=== PATIENT | female | born 1950 | race Caucasian/White ===

== ENCOUNTER 2018-06-23 13:20 | Inpatient (IN) | payer MEDICARE ==
[~2018-06-23] VITALS: Ht 167.6 cm; Wt 54.1 kg
--- NOTE | 2018-06-23 13:45 | NUR ---
PT PLACED IN PAPER SCRUBS, AND PT PLACED IN SECURE ROOM 19. BELONGINGS REMOVED FROM PATIENT ROOM.
--- NOTE | 2018-06-23 14:28 | NUR ---
PT BECAME ARGUMENTATIVE WITH DOPE MIXER. PT REPORTS THAT SHE WILL NOT ALLOW LAB DRAWN UNTIL HER CAREGIVER ARRIVES AND STATES SHE WILL HIT DOPE MIXER IF CAREGIVER IS NOT PRESENT DURING LAB DRAW. ADVISED PT THAT HER CAREGIVER IS NOT PRESENT AT THIS TIME AND LAB WORK IS NEEDED TO HELP PATIENT GET FURTHER CARE. ALSO ADVISED PT THAT IT IS NOT OK TO MAKE VIOLENT THREATS. PT STATES SHE CAN " BECAUSE SHE IS FULL BLOODED SRI LANKAN" PT REPORTS SHE WILL ALLOW LAB DRAWN WITH NURSE PRESENT. ALLOWED DOPE MIXER TO DRAW BLOOD WITHOUT INCIDIENT.
[2018-06-23 14:37] LABS: BASOPHILS 0.3 % (0-2); EOSINOPHILS 0.8 % (0-7); HEMOGLOBIN 13.1 g/dL (12-16); LYMPHOCYTES 35.5 % (15-50); MCH 29.8 pg (26.0-34.0); MCHC 34.5 g/dL (31.0-37.0); MCV 86.6 fL (80.0-100.0); MEAN PLATELET VOLUME 10.4 fL (7.4-10.4); MONOCYTES 8.6 % (2-11); NEUTROPHILS 54.8 % (40-80); PLATELET COUNT 287 10x3/uL (130-400); RBC 4.39 10x6/uL (4.00-5.40); RDW 12.5 % (11.5-14.5); WBC 7.5 10x3/uL (4.8-10.8)
[2018-06-23 14:39] LABS: APPEARANCE HAZY (CLEAR); BILIRUBIN NEGATIVE (NEGATIVE); COLOR YELLOW (YELLOW); GLUCOSE 1000 mg/dL (NEGATIVE); KETONE NEGATIVE (NEGATIVE); NITRITE NEGATIVE (NEGATIVE); PROTEIN NEGATIVE (NEGATIVE); RED CELLS - URINE 0-5 /hpf (0-5); SPECIFIC GRAVITY 1.015 (1.005-1.020); UROBILINOGEN NORMAL (NORMAL)
[2018-06-23 14:40] LABS: BACTERIA MANY /hpf (NONE SEEN); MUCUS <1+ /lpf (NONE SEEN); YEAST <1+ /hpf (NONE SEEN)
[2018-06-23 15:00] LABS: ALBUMIN 3.6 g/dL (3.4-5.0); ALKALINE PHOSPHATASE 78 U/L (46-116); ALT (SGPT) 29 U/L (10-68); BILIRUBIN - TOTAL 0.52 mg/dL (0.2-1.3); CALC OSMOLALITY 295 mosm/kg (275-300); CALCIUM 8.4 mg/dL (8.5-10.1); CARBON DIOXIDE 27.8 mmol/L (21.0-32.0); CHLORIDE - SERUM 101 mmol/L (98-107); CREATININE - SERUM 0.8 mg/dL (0.6-1.3); GLUCOSE 299 mg/dL (74-106); POTASSIUM - SERUM 4.2 mmol/L (3.5-5.1); PROTEIN - SERUM 7.1 g/dL (6.4-8.2); SODIUM 140 mmol/L (136-145); UREA NITROGEN 28 mg/dL (7-18); eGFR NON AFRICAN AMERICAN 76 mL/min (90-120)
[2018-06-23 15:01] LABS: MAGNESIUM - SERUM 1.9 mg/dL (1.8-2.4)
[2018-06-23 15:05] LABS: UDS - AMPHET NEGATIVE QUAL (NEGATIVE); UDS - BARB NEGATIVE QUAL (NEGATIVE); UDS - BENZO NEGATIVE QUAL (NEGATIVE); UDS - COCAINE NEGATIVE QUAL (NEGATIVE); UDS - OPIATE NEGATIVE QUAL (NEGATIVE); UDS - PCP NEGATIVE QUAL (NEGATIVE); UDS - THC NEGATIVE QUAL (NEGATIVE)
[2018-06-23] MEDS ORDERED: GLUCOPHAGE500 MG PO (15:50)
[2018-06-23] MEDS ORDERED: LIPITOR20 MG PO (15:51)
[2018-06-23] MEDS ORDERED: PROTONIX40 MG (15:51)
[2018-06-23] MEDS ORDERED: LEXAPRO5 MG PO (15:51)
[2018-06-23] MEDS ORDERED: NORVASC10 MG PO (15:51)
[2018-06-23] MEDS ORDERED: DICLOFENAC SODI50 MG PO (15:51)
[2018-06-23] MEDS ORDERED: ASPIRIN81 MG PO (15:52)
[2018-06-23] MEDS ORDERED: COZAAR50 MG (15:52)
--- NOTE | 2018-06-23 17:40 | NUR ---
PT PROVIDED WITH SANDWICH TRAY AND DRINK.
--- NOTE | 2018-06-23 18:00 | NUR ---
ADMITTED TO [facility] RETIREMENT UNIT FROM EMERGENCY DEPT. SHE CAME FROM HOME TO ER. DX. SI, NOT EATING " I'VE JUST GIVEN UP " NO PLAN. CODE STATUS: DNR CODE WORD= ANNETTE PRADO. HISTORY OF LEFT FOOT FRACTURE. SHE HAS A UTI AND GIVEN ROCEPHIN 1 GM IM INJECTION IN EMERGENCY DEPT. HT: 5'6' WT:119.12 TEMP=98.3 B/P=142/93, PULSE=88 RESP=18 O2 SAT=95% WILL CONTINUE TO MONITOR. PATIENT IS ABLE TO WALK WITH A WALKER.
[2018-06-23 18:59] LABS: CHOL - HDL RATIO 1.7 ratio (2.3-4.1); LDL-HDL RATIO 0.6 ratio (1.5-3.5); THYROID STIMULATING HORMONE 1.53 uIU/mL (0.36-3.74)
--- NOTE | 2018-06-24 01:30 | NUR ---
RECEIVED IN PATIENT ROOM. RESTING IN BED WITH EYES CLOSED. CALM AND COOPEATIVE WITH CARE AND ASSESSMENT. PLEASANT. ENCOURAGE TO EXPRESS NEEDS. REDIRECT AND REORIENT NEEDED. RESTING IN BED WITH EYES CLOSED AT THIS TIME. CONTINUE PLAN OF CARE.
[2018-06-24 05:46] VITALS: BP 142/93; BMI 19.2
--- NOTE | 2018-06-24 07:30 | NUR ---
REC'D PT IN HALLWAY WITH PEERS. ALERT AND ORIENTED X 3. PT DENIES ANY SI. PT DENIES ANY HARM TO SELF. PT. IS DELUSIONAL AT TIMES. CALM AND COOPERATIVE WITH ASSESSMENT. REDIRECT NEEDED. PRESCRIBED MEDS PROVIDED. MED COMPLIANT. FALL PRECAUTIONS IN PLACE. WILL CONTINUE TO MONITOR Q 15 MINUTES FOR SAFETY. WILL CPOC.
[2018-06-24 08:00] VITALS: BP 161/73
[2018-06-24 14:23] VITALS: BMI 19.2
--- NOTE | 2018-06-24 18:27 | NUR ---
PT BECOME VERY AGGRESSIVE WITH STAFF. PT YELLING, KICKING AND SCREAMING AT STAFF. UNABLE TO REDIRECT AT THIS TIME. PRN ATIVAN 0.5MG AND HALDOL 2MG IM GIVEN PER PRN ORDERS. WILL CONTINUE TO MONITOR Q 15 MINUTES FOR SAFETY.
--- NOTE | 2018-06-24 22:24 | NUR ---
RECEIVED IN PATIENT ROOM. GETTING READY FOR BED. CALM AND COOPERATIVE WITH CARE AND ASSESSMENT. DENIES THOUGHTS OF SELF HARM. REDRIECT AND REORIENT NEEDED. RESTING IN BED WITH EYES CLOSED AT THIS TIME. CONTINUE PLAN OF CARE.
[2018-06-25 08:23] VITALS: BP 100/71
--- NOTE | 2018-06-25 10:00 | NUR ---
RECEIVED PT IN DINING ROOM FOR B'FAST, ALERT, CALM,COOPERATIVE. MEDS ADMIN PER ORDERS WITH COMPLETE MED COMPLIANCE NOTED. COOPERATIVE WITH GROUP AND STAFF REQUESTS. CONT POC INCLUDING MEDS AND GROUP THERAPYA DIRECTED.
[2018-06-25 10:20] LABS: FOLATE (FOLIC ACID) - SERUM 19.9 ng/mL (>3.0)
[2018-06-25 13:59] VITALS: Ht 167.6 cm; Wt 54.1 kg
--- NOTE | 2018-06-25 14:04 | NUR ---
Nutrition Follow Up: Chart reviewed Diet: ADA PO Intake: 100% meal avg No BM since admit Meds and labs reviewed Rec continue current diet. RD following.
--- NOTE | 2018-06-25 20:53 | NUR ---
RECEIVED IN PATIENT ROOM. RESTING IN BED WITH EYES CLOSED. RESPONDS TO VOICE. CALM AND COOPERATIVE WITH CARE AND ASSESSMENT. DENIES THOUGHTS OF SELF HARM. REDIRECT AND REORIENT NEEDED. REDIRECT AND REORIENT NEEDED. RESTING IN BED WITH EYES CLOSED AT THIS TIME. CONTINUE PLAN OF CARE.
[2018-06-26 00:47] VITALS: BP 167/74
[2018-06-26 07:58] VITALS: BP 150/68
--- NOTE | 2018-06-26 15:03 | NUR ---
IS ORIENTED WITH SOME CONFUSION.DENIES THOUGHTS OF HARMING SELF.DENIES THREAT TO HARM SELF AT HOME.COMPLIANT WITH STAFF AND MEDS.PROPELLS SELF IN WHEELCHAIR.WILL CONTINUE WITH PLAN OF CARE,MONITOR FOR CHANGES AND SAFETY.
--- NOTE | 2018-06-26 15:50 | PN ---
PATIENT:JONNATHAN SANCHEZ MEDICAL RECORD: [id number] LOCATION:[facility] ADMISSION DATE: 06/23/18 PROGRESS NOTE DATE OF SERVICE: 06/25/2018 SUBJECTIVE: The patient's case was discussed with staff. She has no new complaint. OBJECTIVE: The patient is less depressed than she was yesterday. She is not making any new delusional statements, but is certainly withdrawn. ASSESSMENT: No change in diagnoses. PLAN: Supportive and educational interventions were made. Long-term prognosis is guarded. TRANSINT:[id number] Voice Confirmation ID: [id number] DOCUMENT ID: [id number] FREDA FREDERICK MD at 1550 CC: [id number] DICTATION DATE: 06/25/18 1646 BUSINESS ANALYSIS ANALYST: 06/25/18 1753 ADM IN [place] [id number] [place] [address]
--- NOTE | 2018-06-26 20:19 | NUR ---
RECEIVED IN PATIENT ROOM. COOPERATIVE WITH CARE AND ASSESSMENT. DEMANDING AT TIMES. DENIES THOUGHTS OF SELF HARM. REDIRECT AND REORIENT NEEDED. RESTING IN BED WITH EYES OPEN AT THIS ITME. CONTINUE PLAN OF CARE.
[2018-06-27 08:14] VITALS: BP 115/62
--- NOTE | 2018-06-27 13:53 | PN ---
PATIENT:JONNATHAN SANCHEZ MEDICAL RECORD: [id number] LOCATION:[facility] ADMISSION DATE: 06/23/18 PROGRESS NOTE DATE OF SERVICE: 06/26/2018 SUBJECTIVE: The patient's case was discussed with staff. She has no new complaint. OBJECTIVE: The patient has tolerated her initial dose of Effexor well. ASSESSMENT: No change in diagnoses. PLAN: I am going to increase the patient's Effexor to 100 mg daily. I think her long-term prognosis is guarded. She made no delusional statements today. TRANSINT:[id number] Voice Confirmation ID: [id number] DOCUMENT ID: [id number] FREDA FREDERICK MD at 1353 CC: [id number] DICTATION DATE: 06/26/181715 COMMERCIAL LINES SALES EXECUTIVE: 06/26/18 2259 ADM IN [place] [address] [place] [address]
--- NOTE | 2018-06-27 16:43 | NUR ---
IS ORIENTED WITH SOME CONFUSION.REFUSED MEDS THIS AM BUT TOOK THEM AT 1330 THIS AFTERNOON.SLEPT MOST OF MORNING SITTING UP IN WHEELCHAIR.DENIES THOUGHTS OF HARMING SELF.WILL CONTINUE WITH PLAN OF CARE,MONITOR FOR SAFETY AND CHANGES.
[2018-06-27 20:00] VITALS: BP 117/47
--- NOTE | 2018-06-28 01:34 | NUR ---
PATIENT IS CONFUSED, CAN REQUEST BASIC NEEDS, COMPLIANT WITH MEDS, NO ADVERSE REACTION NOTED. WILL FOLLOW POC
[2018-06-28 08:27] VITALS: BP 120/64
--- NOTE | 2018-06-28 10:40 | NUR ---
RECEIVED PATIENT IN DINING ROOM FOR B'FAST, ALERT, CALM, COOPERATIVE, APPETITE POOR, ATE APPROX 25% OF B'FAST. MEDS ADMIN PER ORDERS WITH COMPLETE MED COMPLIANCE NOTED. COOPERATIVE WITH GROUP ACTIVITIES WITH COMPLETE MED COMPLIANCE NOTED. CONT POC INCLUDING MEDS AND GROUP THERAPY DIRECTED.
--- NOTE | 2018-06-28 12:17 | PN ---
PATIENT:JONNATHAN SANCHEZ MEDICAL RECORD: [id number] LOCATION:[facility] ADMISSION DATE: 06/23/18 PROGRESS NOTE DATE OF SERVICE: 06/27/2018 SUBJECTIVE: The patient's case was discussed with staff. She has no new complaint. OBJECTIVE: The patient denies intent to harm herself or others. She is tolerating her medicines reasonably well. ASSESSMENT: No change in diagnoses. PLAN: Current medicines have been reviewed and will be maintained. I do plan to increase the dose of her antidepressant significantly, but at this point, I am taking a little bit slower approach because of how somatic she tends to be. TRANSINT:[id number] Voice Confirmation ID: [id number] DOCUMENT ID: [id number] FREDA FREDERICK MD at 1217 CC: [id number] DICTATION DATE: 06/27/18 1606 HOSPICE LIAISON: 06/27/18 2329 ADM IN [place] [id number] [place] [id number]
--- NOTE | 2018-06-28 21:03 | NUR ---
PATIENT IS COOPERATIVE, CAN REQUEST NEEDS, DOESN'T TALK MUCH, FLAT AFFECT, COMPLIANT WITH MEDS, WILL FOLLOW POC
[2018-06-29 01:57] VITALS: BP 152/58
--- NOTE | 2018-06-29 10:00 | NUR ---
RECEIVED PATIENT IN DINING ROOM FOR B'FAST, ALERT, CALM, COOPERATIVE, NO SUICIDAL STATEMENTS NOTED. MEDS ADMIN PER ORDERS WITH COMPLETE MED COMPLIANCE NOTED. COOPERATIVE WITH STAFF AND GROUP. CONT POC INCLUDING MEDS AND GROUP THERAPY DIRECTED.
[2018-06-29 10:03] VITALS: BP 103/51
--- NOTE | 2018-06-29 11:49 | PN ---
PATIENT:JONNATHAN SANCHEZ MEDICAL RECORD: [id number] LOCATION:[facility] [address] ADMISSION DATE: 06/23/18 PROGRESS NOTE DATE OF SERVICE: 06/28/2018 SUBJECTIVE: The patient's case was discussed with staff. She has no new complaint. OBJECTIVE: The patient denies intent to harm herself or others. She is blunted and withdrawn. She is tolerating her medications reasonably well. ASSESSMENT: No change in diagnoses. PLAN: Supportive and educational interventions were made. Long-term prognosis is guarded. TRANSINT:[id number] Voice Confirmation ID: [id number] DOCUMENT ID: [id number] FREDA FREDERICK MD at 1149 CC: [id number] DICTATION DATE: 06/28/18 1421 PROGRAMMER ANALYST CONSULTANT: 06/28/18 1447 ADM IN [place] [id number] [place] [address]
--- NOTE | 2018-06-29 18:10 | NUR ---
PATIENT COOPERATIVE THIS SHIFT. ABLE TO TRANSFER SELF FROM W/C TO RECLINER WITHOUT DIFFICULTY. NO SI NOTED.
--- NOTE | 2018-06-29 21:32 | NUR ---
PATIENT IS QUIET AND WITHDRAWN, FLAT AFFECT, COMPLIANT WITH MEDS, ABLE TO MAKE NEEDS KNOWN, WILL FOLLOW POC
[2018-06-29 22:53] VITALS: BP 117/50
--- NOTE | 2018-06-30 07:30 | NUR ---
PT IS CALM AND COOPERATIVE AT THIS TIME WITH ASSESSMENT. PT CONTINUES TO REFUSE MEDS. PT IS VERY CONFUSED. DEMANDING AT TIMES. REDIRECT AND REORIENT NEEDED. PRESCRIBED MEDS PROVIDED. MED COMPLIANT. WILL CONTINUE TO MONITOR Q 15 MINUTES FOR SAFETY. WILL CPOC.
--- NOTE | 2018-06-30 15:29 | PN ---
PATIENT:JONNATHAN SANCHEZ MEDICAL RECORD: [id number] LOCATION:[facility] ADMISSION DATE: 06/23/18 PROGRESS NOTE DATE OF SERVICE: 06/29/2018 SUBJECTIVE: The patient's case was discussed with staff. She has no new complaint. OBJECTIVE: The patient is in good behavioral control with limited insight about her condition. She is tolerating her medicines well. ASSESSMENT: No change in diagnoses. PLAN: Brief supportive and educational interventions were made. Long-term prognosis is guarded. TRANSINT:[id number] Voice Confirmation ID: [id number] DOCUMENT ID: [id number] FREDA FREDERICK MD at 1529 CC: [id number] DICTATION DATE: 06/29/18 1207 SCREEN PRINTING PRESS OPERATOR: 06/29/18 1226 ADM IN [address] [address]
[2018-06-30 20:03] VITALS: BP 134/63
--- NOTE | 2018-06-30 21:21 | NUR ---
PATIENT IS WITHDRAWN, DOES MAKE NEEDS KNOWN, USES A WALKER, COMPLIANT WITH MEDS, NO ADVERSE REACTION NOTED. WILL FOLLOW POC
--- NOTE | 2018-07-01 07:30 | NUR ---
REC'D PT IN HALLWAY. PT IS DEMANDING AT TIMES. ALERT AND ORIENTED X 4. CALM AND COOPERATIVE WITH ASSESSMENT. PRESCRIBED MEDS PROVIDED. MED COMPLIANT. REDIRECT NEEDED. FALL PRECAUTIONS IN PLACE. WILL CONTINUE TO MONITOR Q 15 MINUTES FOR SAFETY. WILL CPOC.
[2018-07-01 08:00] VITALS: BP 132/71
--- NOTE | 2018-07-01 10:11 | NUR ---
Nutrition Follow Up: Chart reviewed Diet: ADA Vegetarian PO Intake: 52% meal avg BM: 06/30/18 Labs reviewed - Glucose slightly elevated Meds noted Rec continue current diet. Will continue to honor food preferences. RD following.
--- NOTE | 2018-07-01 12:02 | PN ---
PATIENT:JONNATHAN SANCHEZ MEDICAL RECORD: [id number] LOCATION:[facility] ADMISSION DATE: 06/23/18 PROGRESS NOTE DATE OF SERVICE: 06/30/2018 SUBJECTIVE: The patient's case was discussed with staff. She has no new complaint. OBJECTIVE: The patient is refusing to take her medicines, but will not say why or discuss it with me. She just turns her head away. ASSESSMENT: No change in diagnoses. PLAN: I will continue current medicines and will consider addressing any concerns the patient has; but at this point, at least today, she will not express them to me. I spoke to the medication nurse and she told me the same thing that Jonnathan would not take her medicines, but would not discuss why. TRANSINT:[id number] Voice Confirmation ID: [id number] DOCUMENT ID: [id number] FREDA FREDERICK MD at 1202 CC: [id number] DICTATION DATE: 06/30/18 1620 CUSTOMER GREETER: 06/30/184 ADM IN [place] [id number] [place] [address]
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
--- NOTE | 2018-07-01 23:00 | NUR ---
RECEIVED IN DAYROOM. SITTING IN CHAIR WHILE WATCHING TV. CALM AND COOPERATIVE WITH CARE AND ASSESSMENT. NO SIGNS OF AGGRESSION. DENIES THOUGHTS OF SELF HARM. NO ARGUMENTATIVE BEHAVIORS. REDIRECT AND REORIENT NEEDED. RESTING IN BED WITH EYES CLOSED AT THIS TIME. CONTINUE PLAN OF CARE.
[2018-07-01 23:36] VITALS: BP 151/67
--- NOTE | 2018-07-02 07:30 | NUR ---
REC'D PT IN HALLWAY WITH PEERS. ALERT AND ORIENTED X 4. CALM AND COOPERATIVE WITH ASSESSMENT. REDIRECT AND REORIENT NEEDED. PRESCRIBED MEDS PROVIDED. MED COMPLIANT. FALL PRECAUTIONS IN PLACE. WILL CONTINUE TO MONITOR Q 15 MINUTES FOR SAFETY. WILL CPOC.
[2018-07-02 07:50] VITALS: BP 128/74
--- NOTE | 2018-07-02 15:37 | PN ---
PATIENT:JONNATHAN SANCHEZ MEDICAL RECORD: [id number] LOCATION:VERNON [address] ADMISSION DATE: 06/23/18 PROGRESS NOTE DATE OF SERVICE: 07/01/2018 SUBJECTIVE: The patient's case was discussed with staff. She has no new complaint. OBJECTIVE: The patient is in good behavioral control with poor insight about her condition. She tolerates her medicines well. ASSESSMENT: No change in diagnoses. PLAN: Brief supportive and educational interventions were made. Long-term prognosis is guarded. TRANSINT:[id number] Voice Confirmation ID: [id number] DOCUMENT ID: [id number] FREDA FREDERICK MD at 1537 CC: [id number] DICTATION DATE: 07/01/18 1323 PHOTOGRAMMETRIC TECH: 07/01/18 1419 ADM IN [address] [address]
--- NOTE | 2018-07-02 21:11 | NUR ---
RECEIVED IN PATIENT ROOM. RESTING IN BED WITH EYES OPEN. CALM AND COOPERATIVE WITH CARE AND ASSESSMENT. DENIES THOUGHTS OF SELF HARM. NO SIGNS OF AGGRESSION. NO AGITATION. REDIRECT AND REORIENT NEEDED. RESTING IN BED WITH EYES CLOSED AT THIS TIME. CONTINUE PLAN OF CARE.
[2018-07-02 22:09] VITALS: BP 160/74
[2018-07-03 07:24] VITALS: BP 125/80
--- NOTE | 2018-07-03 08:00 | NUR ---
GLUCOTROL UNAVAILABLE FOR ADMINISTRATION. PHARMACY NOTIFIED.
--- NOTE | 2018-07-03 10:05 | NUR ---
GLUCOTROL NOT AVAILABLE FOR ADMINISTRATION
--- NOTE | 2018-07-03 10:20 | NUR ---
RECEIVED PATIENT IN DINING ROOM FOR B'FAST, ALERT, CALM, DEMANDING AT TIMES. NO SI NOTED. MEDS ADMIN PER ORDERS WITH COMPLETE MED COMPLIANCE NOTED. NO S/S ADVERSE REACTION NOTED. COOPERATIVE WITH GROUP AND STAFF REQUESTS. CONT POC INCLUDING MEDS AND GROUP THERAPY DIRECTED.
--- NOTE | 2018-07-03 14:48 | PN ---
PATIENT:JONNATHAN SANCHEZ MEDICAL RECORD: [id number] LOCATION:VERNON [address] ADMISSION DATE: 06/23/18 PROGRESS NOTE DATE OF SERVICE: 07/02/2018 SUBJECTIVE: The patient's case was discussed with staff. She has no new complaint. OBJECTIVE: The patient is in good behavioral control with limited insight about her condition. She is tolerating her medicines well. She continues to look quite depressed. ASSESSMENT: No change in diagnoses. PLAN: The patient's Effexor will be increased to 150 mg daily. She will be monitored for clinical changes associated with its use. TRANSINT:[id number] Voice Confirmation ID: [id number] DOCUMENT ID: [id number] FREDA FREDERICK MD at 1448 CC: [id number] DICTATION DATE: 07/02/18 162 CENTRAL MELT SPECIALIST: 07/03/18 0013 ADM IN [place] [id number] [place] [id number]
[2018-07-03 20:00] VITALS: BP 127/59
--- NOTE | 2018-07-04 04:52 | NUR ---
B) Patient is alert and oriented to self, calm and cooperative I) Administered scheduled medications as ordered, monitored for needs, R) Medication compliant, sleeping quietly in her bed, P) Continue plan of care.
[2018-07-04 08:10] VITALS: BP 126/63
--- NOTE | 2018-07-04 10:15 | NUR ---
RECEIVED PATIENT IN DINING ROOM FOR B'FAST, ALERT, CALM, DEMANDING, CONFUSED. NO SI NOTED. MEDS ADMIN PER ORDERS WITH COMPLETE MED COMPLIANCE NOTED. INSISTS THAT MEDS ARE CRUSHED AND MIXED WITH APPLESAUCE. PARTICIPATES IN GROUP REQUESTED. CONT POC INCLUDING MEDS AND GROUP THERAPY DIRECTED.
[2018-07-04 20:08] VITALS: BP 129/63
--- NOTE | 2018-07-05 02:15 | NUR ---
B) Patient is alert and oriented to person and place, calm and cooperative I) Administered scheduled medications as ordered, monitored for satey R) Mediation s compliant,pleasant, P) Continue plan of care.
[2018-07-05 08:01] VITALS: BP 138/63
--- NOTE | 2018-07-05 12:56 | PN ---
PATIENT:JONNATHAN SANCHEZ MEDICAL RECORD: [id number] LOCATION:VERNON [address] ADMISSION DATE: 06/23/18 PROGRESS NOTE DATE OF SERVICE: 07/04/2018 SUBJECTIVE: The patient's case was discussed with staff. She has no new complaint. OBJECTIVE: The patient is in good behavioral control with poor insight about her condition. She tolerates her medicines well. ASSESSMENT: No change in diagnoses. PLAN: Current medicines and therapies have been reviewed and will be maintained. Long-term prognosis is guarded. Housing is an issue right now. The senior care that she had previously lived in will no longer accept her. TRANSINT:[id number] Voice Confirmation ID: [id number] DOCUMENT ID: [id number] FREDA FREDERICK MD at 1256 CC: [id number] DICTATION DATE: 07/04/18 1650 POURER: 07/04/18 2326 ADM IN [place] [address] [place] [address]
--- NOTE | 2018-07-05 12:56 | PN ---
PATIENT:JONNATHAN SANCHEZ MEDICAL RECORD: [id number] LOCATION:VERNON LockettElisabeth113 ADMISSION DATE: 06/23/18 PROGRESS NOTE DATE OF SERVICE: 07/03/2018 SUBJECTIVE: The patient's case was discussed with staff. She has no new complaint. OBJECTIVE: The patient denies intent to harm herself or others. She is generally tolerating her medicines well. ASSESSMENT: No change in diagnoses. PLAN: Current medicines have been reviewed. She is taking a reasonable dose of an antidepressant and it may need to be increased, but at this point, it has not had full opportunity to become effective. TRANSINT:[id number] Voice Confirmation ID: [id number] DOCUMENT ID: [id number] FREDA FREDERICK MD at 1256 CC: [id number] DICTATION DATE: 07/03/18 1511 EXTRACTION MACHINE OPERATOR: 07/03/18 2120 ADM IN [facility] [address] [place] [address]
--- NOTE | 2018-07-05 13:53 | NUR ---
B) The patient is awake, she is oriented times person and place, she has not made any negative remarks. She has been sleeping a lot, but she wakes up to eat her meals. She uses a w/c to self propel, but she attempts to get staff to wheel her around. I) Provide prescribed meds. Redirect as needed. R) The patient is compliant with meds. P) Continue POC.
--- NOTE | 2018-07-05 21:45 | NUR ---
PATIENT HAS A VERY FLAT AFFECT, DOES NOT COMMUNICATE WITH OTHERS MUCH. MAKES NEEDS KNOWN, COMPLIANT WITH MEDS. WILL FOLLOW POC
[2018-07-06 04:45] VITALS: BP 151/67
--- NOTE | 2018-07-06 08:00 | NUR ---
REC'D PT IN HALLWAY IN W/C WITH PEERS. PT HAS FLAT AFFECT. CALM AND COOPERATIVE WITH ASSESSMENT. NO AGGRESSION NOTED. PT HAS BEEN EATING AND SLEEPING WELL PER REPORT.PRESCRIBED MEDS PROVIDED. MED COMPLIANT. FALL PRECAUTIONS IN PLACE. WILL CONTINUE TO MONITOR Q 15 MINUTES FOR SAFETY. WILL CPOC.
[2018-07-06 08:18] VITALS: BP 119/61
--- NOTE | 2018-07-06 12:21 | PN ---
PATIENT:JONNATHAN SANCHEZ MEDICAL RECORD: [id number] LOCATION:VERNON [address] ADMISSION DATE: 06/23/18 PROGRESS NOTE DATE OF SERVICE: 07/05/2018 SUBJECTIVE: The patient's case was discussed with staff. She has no new complaint. OBJECTIVE: The patient denies intent to harm herself or others. She generally tolerates her medicines well. She continues to be withdrawn and depressed, but again denies she is suicidal. ASSESSMENT: No change in diagnoses. PLAN: Current medicines will be maintained. Long-term prognosis is guarded. TRANSINT:[id number] Voice Confirmation ID: [id number] DOCUMENT ID: [id number] FREDA FREDERICK MD at 1221 CC: [id number] DICTATION DATE: 07/05/18 1346 STAMPING DIE TRY OUT WORKER: 07/05/18 1419 ADM IN [place] [id number] [place] [address]
[2018-07-06 21:16] VITALS: BP 140/70
--- NOTE | 2018-07-06 22:41 | NUR ---
PATIENT IS QUIET, INTROVERTED AND HAS A FLAT AFFECT, CAN MAKE NEEDS KNOWN, COMPLIANT WITH MEDS, NO ADVERSE REACTION NOTED
[2018-07-07 08:00] VITALS: BP 97/76
--- NOTE | 2018-07-07 16:05 | PN ---
PATIENT:JONNATHAN SANCHEZ MEDICAL RECORD: [id number] LOCATION:VERNON [address] ADMISSION DATE: 06/23/18 PROGRESS NOTE DATE OF SERVICE: 07/06/2018 SUBJECTIVE: The patient's case was discussed with staff. She has no new complaint. OBJECTIVE: The patient denies intent to harm herself or others. She tolerates her medicines well. ASSESSMENT: No change in diagnoses. PLAN: Brief supportive and educational interventions were made. Long-term prognosis is guarded. The patient is eating reasonably well and did sleep very well. She does not appear to be over-sedated today. TRANSINT:[id number] Voice Confirmation ID: [id number] DOCUMENT ID: [id number] FREDA FREDERICK MD at 1605 CC: [id number] DICTATION DATE: 07/06/18 1241 ASBESTOS TEXTILE SUPERVISOR: 07/06/18 1249 ADM IN [place] [id number] [place] [address]
--- NOTE | 2018-07-07 17:00 | NUR ---
PATIENT IS CALM AND COOPERATIVE WITH CARE AND ASSESSMENT, WITH A FLAT AFFECT. NO AGGRESSION NOTED. COMPLIANT WITH MEDICATIONS. FALL PRECAUTIONS MAINTAINED. WILL CONTINUE PLAN OF CARE.
[2018-07-07 20:06] VITALS: BP 129/57
--- NOTE | 2018-07-08 00:21 | NUR ---
RECEIVED IN DAYROOM. RESTING IN RECLINER WITH EYES OPEN. CALM AND COOPERATIVE WITH CARE AND ASSESSMENT. DENIES THOUGHTS OF SELF HARM. NO SIGNS OF AGGRESSION. REDIRECT AND REORIENT NEEDED. RESTING IN BED WITH EYES CLOSED AT THIS TIME. CONTINUE PLAN OF CARE.
[2018-07-08 07:48] VITALS: BP 146/86
--- NOTE | 2018-07-08 09:23 | NUR ---
RECEIVED PATIENT IN DINING ROOM FOR B'FAST, ALERT, CALM, DEMANDING, INTRUSIVE INTO OTHER PATIENTS AFFAIRS. MEDS ADMIN PER ORDERS WITH COMPLETE MED COMPLIANCE NOTED. COOPERATIVE WITH GROUP AND STAFF REQUESTS. CONT POC INCLUDING MEDS AND GROUP THERAPY.
--- NOTE | 2018-07-08 11:01 | NUR ---
Nutrition Follow Up: Chart reviewed Diet: ADA/Vegetarian PO Intake: 51% meal avg BM: 07/04/18 Labs reviewed Meds noted including Megace Rec continue current diet. RD following.
--- NOTE | 2018-07-08 15:21 | PN ---
PATIENT:JONNATHAN SANCHEZ MEDICAL RECORD: [id number] LOCATION:[facility] ADMISSION DATE: 06/23/18 PROGRESS NOTE DATE OF SERVICE: 07/07/2018 SUBJECTIVE: The patient's case was discussed with staff. She has no new complaint. OBJECTIVE: The patient denies intent to harm herself or others. She is not mentioning any of the delusion about being an today. She tolerates her medicines well. ASSESSMENT: No change in diagnoses. PLAN: Current medicines have been reviewed and will be maintained. Long-term prognosis is guarded. TRANSINT:[id number] Voice Confirmation ID: [id number] DOCUMENT ID: [id number] FREDA FREDERICK MD at 1521 CC: [id number] DICTATION DATE: 07/07/18 1620 PADDING MACHINE OPERATOR: 07/07/18 1720 ADM IN [place] [id number] [place] [id number]
[2018-07-08 19:34] VITALS: BP 150/58
--- NOTE | 2018-07-08 21:47 | NUR ---
RECEIVED IN DAYROOM. RESTING IN RECLINER WITH EYES OPEN. CALM AND COOPERATIVE WITH CARE AND ASSESSMENT. NO SIGNS OF AGGRESSION. DENIES THOUGHTS OF SELF HARM. REDIRECT AND REORIENT NEEDED. RESTING IN BED WITH EYES OPEN AT THIS TIME. CONTINUE PLAN OF CARE.
[2018-07-09 09:47] VITALS: BP 128/57
--- NOTE | 2018-07-09 15:56 | PN ---
PATIENT:JONNATHAN SANCHEZ MEDICAL RECORD: [id number] LOCATION:[facility] ADMISSION DATE: 06/23/18 PROGRESS NOTE DATE OF SERVICE: 07/08/2018 SUBJECTIVE: The patient's case was discussed with staff. She has no new complaint. OBJECTIVE: The patient is in good behavioral control. She has no thoughts of harming herself or others. She does tolerate her medicines well. ASSESSMENT: No change in diagnoses. PLAN: Current medicines have been reviewed and will be maintained. Long-term prognosis is guarded. TRANSINT:[id number] Voice Confirmation ID: [id number] DOCUMENT ID: [id number] FREDA FREDERICK MD at 1556 CC: [id number] DICTATION DATE: 07/08/18 1535 ADOLESCENT SPECIALIST: 07/09/18 [address] [facility] [address] [place] [address]
[2018-07-09 22:07] VITALS: BP 130/60
--- NOTE | 2018-07-09 22:50 | NUR ---
RECEIVED IN PATIENT ROOM. RESTING IN BED WITH EYES OPEN. CALM AND COOPERATIVE WITH CARE AND ASSESSMENT. NO SIGNS OF AGGRESSION. DENIES THOUGHTS OF SELF HARM AT THIS TIME. CONTINUE PLAN OF CARE.
[2018-07-10 09:28] VITALS: BP 137/65
--- NOTE | 2018-07-10 14:00 | PN ---
PATIENT:JONNATHAN SANCHEZ MEDICAL RECORD: [id number] LOCATION:[facility] ADMISSION DATE: 06/23/18 PROGRESS NOTE DATE OF SERVICE: 07/09/2018 SUBJECTIVE: The patient's case was discussed with staff. She has no new complaint. OBJECTIVE: The patient denies intent to harm herself or others. She is tolerating her medicines well. ASSESSMENT: No change in diagnoses. PLAN: Current medicines will be maintained. Long-term prognosis is guarded. TRANSINT:[id number] Voice Confirmation ID: [id number] DOCUMENT ID: [id number] FREDA FREDERICK MD at 1400 CC: [id number] DICTATION DATE: 07/09/18 1621 WIND TURBINE DESIGN ENGINEER: 07/09/18 2241 ADM IN [address] [address]
--- NOTE | 2018-07-10 18:00 | NUR ---
IS ORIENTED X 3 BUT STILL HAS SOME CONFUSION.IS COMPLIANT WITH STAFF AND MEDS.REQUEST MEDS CRUSHED AND IN APPLESAUCE.DENIES THOUGHTS OF HARMING SELF.WILL CONTINUE WITH PLAN OF CARE,MONITOR FOR CHANGES AND SAFETY.
[2018-07-10 20:36] VITALS: BP 120/60
--- NOTE | 2018-07-11 01:47 | NUR ---
B) Patient is alert and oriented to person, place and time, calm and cooperative, I) Administered scheduled medications as ordered, monitored for safety, assisted with needs, R) Mediation compliant, resting quietly in her bed now, P) Continue plan of care.
--- NOTE | 2018-07-11 07:39 | NUR ---
B) The patient is awake and alert, she is pleasant. She has not made any remarks about suicide today. I) Provide prescribed meds. R) The patient is compliant with meds and unit milieu. P) Continue POC.
[2018-07-11 09:20] VITALS: BP 124/70
--- NOTE | 2018-07-11 10:05 | NUR ---
Luanne Conklin APN ordered a chest xray, the patient tolerated the procedure well, she denies any chest pain. Yesterday her EKG showed afib, but today her pulse id 56.
[2018-07-11 12:42] LABS: BASOPHILS 0.2 % (0-2); EOSINOPHILS 1.5 % (0-7); HEMATOCRIT 38.7 % (36.0-48.0); HEMOGLOBIN 13.2 g/dL (12-16); IMMATURE GRANULOCYTES 0.1 % (0-5); LYMPHOCYTES 36.8 % (15-50); MCH 29.5 pg (26.0-34.0); MCHC 34.1 g/dL (31.0-37.0); MCV 86.6 fL (80.0-100.0); MEAN PLATELET VOLUME 10.3 fL (7.4-10.4); NEUTROPHILS 53.4 % (40-80); RBC 4.47 10x6/uL (4.00-5.40); RDW 12.5 % (11.5-14.5); WBC 8.4 10x3/uL (4.8-10.8)
[2018-07-11 12:46] LABS: PLATELET COUNT 348 10x3/uL (130-400)
[2018-07-11 12:56] LABS: CARBON DIOXIDE 26.5 mmol/L (21.0-32.0)
[2018-07-11 13:39] LABS: ALBUMIN 3.6 g/dL (3.4-5.0); ALKALINE PHOSPHATASE 71 U/L (46-116); ALT (SGPT) 26 U/L (10-68); BILIRUBIN - TOTAL 0.27 mg/dL (0.2-1.3); CALC OSMOLALITY 287 mosm/kg (275-300); CALCIUM 8.7 mg/dL (8.5-10.1); CHLORIDE - SERUM 105 mmol/L (98-107); CKMB 0.5 U/L (0.0-3.6); CREATINE KINASE 42 UL (21-215); CREATININE - SERUM 0.8 mg/dL (0.6-1.3); GLUCOSE 101 mg/dL (74-106); POTASSIUM - SERUM 4.1 mmol/L (3.5-5.1); PROTEIN - SERUM 7.1 g/dL (6.4-8.2); SODIUM 142 mmol/L (136-145); TROPONIN-I < 0.017 ng/mL (0.000-0.060); UREA NITROGEN 27 mg/dL (7-18); eGFR NON AFRICAN AMERICAN 76 mL/min (90-120)
--- NOTE | 2018-07-11 17:15 | PN ---
PATIENT:JONNATHAN SANCHEZ MEDICAL RECORD: [id number] LOCATION:[facility] ADMISSION DATE: 06/23/18 PROGRESS NOTE DATE OF SERVICE: 07/10/2018 SUBJECTIVE: The patient's case was discussed with staff. She has no new complaint. OBJECTIVE: The patient is eating a little better, but still not adequately. She is limited in her insight. She is tolerating her medicines well. ASSESSMENT: No change in diagnoses. PLAN: The patient has no current thoughts of self-harm or harming others. Her prognosis is guarded. TRANSINT:[id number] Voice Confirmation ID: [id number] DOCUMENT ID: [id number] FREDA FREDERICK MD at 1715 CC: [id number] DICTATION DATE: 07/10/18 1423 TOOL COORDINATOR: 07/10/18 1853 ADM IN [place] [address] [place] [address]
[2018-07-11 19:31] VITALS: BP 120/56
--- NOTE | 2018-07-11 20:10 | NUR ---
PATIENT IS CALM, COOPERATIVE, VERY FLAT AFFECT, COMPLIANT WITH MEDS, NO ADVERSE EFFECTS NOTED. WILL FOLLOW POC
[2018-07-12 08:12] VITALS: BP 105/71
--- NOTE | 2018-07-12 10:00 | NUR ---
B) The patient is sleeping at this time. She complained about her breakfast this morning she said "I wanted cheerios and I didn't get any, I got this old oatmeal, as Jose would say You're fired." She said she didn't like how the oatmeal was cooked. She did laugh a little. After breakfast she got on the couch and now she is sleeping. I) Provide prescribed meds. R) The patient is compliant with meds and unit milieu. P) Continue POC.
--- NOTE | 2018-07-12 12:03 | PN ---
PATIENT:JONNATHAN SANCHEZ MEDICAL RECORD: [id number] LOCATION:[facility] ADMISSION DATE: 06/23/18 PROGRESS NOTE DATE OF SERVICE: 07/11/2018 SUBJECTIVE: The patient's case was discussed with staff. She has no new complaint. OBJECTIVE: The patient is in good behavioral control with limited insight about her condition. ASSESSMENT: No change in diagnoses. PLAN: Supportive and educational interventions were made. Long-term prognosis is guarded. TRANSINT:[id number] Voice Confirmation ID: [id number] DOCUMENT ID: [id number] FREDA FREDERICK MD at 1203 CC: [id number] DICTATION DATE: 07/11/18 174 REVIEW ENGINEER: 07/11/18 2157 ADM IN [place] [id number] [place] [address]
[2018-07-12 20:22] VITALS: BP 137/65
[2018-07-13 07:00] VITALS: BP 144/79
--- NOTE | 2018-07-13 18:37 | NUR ---
IS ORIENTED X 3 WITH SOME CONFUSION.COMPLIANT WITH STAFF AND MEDS.WILL CONTINUE WITH PLAN OF CARE,MONITOR FOR CHANGES AND SAFETY.
[2018-07-13 19:26] VITALS: BP 114/54
--- NOTE | 2018-07-13 22:52 | NUR ---
PATIENT IS VERY ORIENTED X3, VERY FLAT AFFECT, NEVER SMILES, MAKES NEEDS KNOWN, COMPLIANT WITH MEDS, NO ADVERSE REACTION NOTED. WILL FOLLOW POC
[2018-07-14 07:00] VITALS: BP 105/63
--- NOTE | 2018-07-14 10:00 | NUR ---
PT IS ALERT AND ORIENTED X 3. PT IS CALM AND COOPERATIVE WITH ASSESSMENT. PT HAS FLAT AFFECT. PRESCRIBED MEDS PROVIDED. MED COMPLIANT. REDIRECT AND REORIENT NEEDED. FALL PRECAUTIONS IN PLACE. NO AGGRESSION NOTED. WILL CONTINUE TO MONITOR Q 15 MINUTES FOR SAFETY. WILL CPOC.
--- NOTE | 2018-07-14 14:45 | PN ---
PATIENT:JONNATHAN SANCHEZ MEDICAL RECORD: [id number] LOCATION:[facility] ADMISSION DATE: 06/23/18 PROGRESS NOTE DATE OF SERVICE: 07/12/2018 SUBJECTIVE: The patient's case was discussed with staff. She has no new complaint. OBJECTIVE: The patient is in good behavioral control. She has poor insight about her situation. She generally tolerates her medicines well. ASSESSMENT: No change in diagnoses. PLAN: Current medicines have been reviewed and will be maintained. The patient's condition continues to improve. I anticipate she can be transitioned out of the hospital soon. TRANSINT:[id number] Voice Confirmation ID: [id number] DOCUMENT ID: [id number] FREDA FREDERICK MD at 1445 CC: [id number] DICTATION DATE: 07/12/18 1318 BURR FILER: 07/13/18 0013 ADM IN [place] [id number] [place] [id number]
--- NOTE | 2018-07-14 14:45 | PN ---
PATIENT:JONNATHAN SANCHEZ MEDICAL RECORD: [id number] LOCATION:[facility] ADMISSION DATE: 06/23/18 PROGRESS NOTE DATE OF SERVICE: 07/13/2018 SUBJECTIVE: The patient's case was discussed with staff. She has no new complaint. OBJECTIVE: The patient is in good behavioral control. She has limited insight about her condition. She tolerates her medicines well. ASSESSMENT: No change in diagnoses. PLAN: The patient has had a level 2 screening from the [facility]. I anticipate senior living approval will be forthcoming soon. TRANSINT:[id number] Voice Confirmation ID: [id number] DOCUMENT ID: [id number] FREDA FREDERICK MD at 1445 CC: [id number] DICTATION DATE: 07/13/18 1236 MINING TECHNICIAN: 07/13/18 1520 ADM IN [place] [id number] [place] [address]
[2018-07-14 21:16] VITALS: BP 130/60
--- NOTE | 2018-07-15 00:19 | NUR ---
RECEIVED IN PATIENT ROOM. RESTING IN BED WITH EYES OPEN. CALM AND COOPERATIVE WITH CARE AND ASSESSMENT. DENIES THOUGHTS OF SELF HARM. NO SIGNS OF AGGRESSION. REDIRECT AND REORIENT NEEDED. RESTING IN BED WITH EYES CLOSED AT THIS TIME. CONTINUE PLAN OF CARE.
[2018-07-15 07:00] VITALS: BP 145/66
--- NOTE | 2018-07-15 10:00 | NUR ---
PT IS AWAKE AND ALERT. CALM AND COOPERATIVE WITH ASSESSMENT. PRESCRIBED MEDS PROVIDED. MED COMPLIANT. REDIRECT AND REORIENT NEEDED. NO AGGRESSION NOTED. FALL PRECAUTIONS IN PLACE. WILL CONTINUE TO MONITOR Q 15 MINUTES FOR SAFETY. WILL CPOC.
--- NOTE | 2018-07-15 13:50 | NUR ---
Vegetarian diabetic diet. Intake varies from 0-100% of meals Pt seens to eat better at breakfast No significant weight change since admit Will trial Glucerna. RD following
--- NOTE | 2018-07-15 15:38 | PN ---
PATIENT:JONNATHAN SANCHEZ MEDICAL RECORD: [id number] LOCATION:[facility] ADMISSION DATE: 06/23/18 PROGRESS NOTE DATE OF SERVICE: 07/14/2018 SUBJECTIVE: The patient's case was discussed with staff. She has no new complaint. OBJECTIVE: The patient is tolerating her medicines well. She has made no more delusional statements. Unfortunately, she is not eating adequately on a consistent basis and is significantly underweight at 5 feet 6 inches tall and only weighing 119 pounds. She has been started on Megace to assist with appetite stimulation. Hopefully, this will be effective in the coming days. Aside from the not eating adequately, I think she is getting closer to beating her discharge goals. Her long-term prognosis is guarded. TRANSINT:[id number] Voice Confirmation ID: [id number] DOCUMENT ID: [id number] FREDA FREDERICK MD at 1538 CC: [id number] DICTATION DATE: 07/14/18 1504 BALL ROLLING MACHINE OPERATOR: 07/14/18 1903 ADM IN [facility] [address] [place] [address]
[2018-07-15 21:34] VITALS: BP 122/64
--- NOTE | 2018-07-16 00:45 | NUR ---
RECEIVED IN PATIENT ROOM. RESTING IN BED WITH EYES OPEN. CALM AND COOPERATIVE WITH CARE AND ASSESSMENT. NO SIGNS OF AGGRESSION. DENIES THOUGHTS OF SELF HARM. REDIRECT AND REORIENT NEEDED. RESTING IN BED WITH EYES CLOSED AT THIS TIME. CONTINUE PLAN OF CARE.
--- NOTE | 2018-07-16 08:00 | NUR ---
REC'D PT IN HALLWAY WITH PEERS. AWAKE AND ALERT. NO AGGRESSION NOTED. CALM AND COOPERATIVE WITH ASSESSMENT. PRESCRIBED MEDS PROVIDED. MED COMPLIANT. FALL PRECAUTIONS IN PLACE. WILL CONTINUE TO MONITOR Q 15 MINUTES FOR SAFETY. WILL CPOC.
[2018-07-16 08:23] VITALS: BP 132/64
--- NOTE | 2018-07-16 13:01 | PN ---
PATIENT:JONNATHAN SANCHEZ MEDICAL RECORD: [id number] LOCATION:[facility] ADMISSION DATE: 06/23/18 PROGRESS NOTE DATE OF SERVICE: 07/15/2018 SUBJECTIVE: The patient's case was discussed with staff. She has no new complaint. OBJECTIVE: The patient is partially oriented. She is eating adequately. She is sleeping reasonably well. She still has a depressed mood, but she is not displaying any psychotic symptoms. ASSESSMENT: No change in diagnoses. PLAN: Current medicines and therapies have been reviewed and will be maintained. Long-term prognosis is guarded. Both supportive and educational interventions were made. TRANSINT:[id number] Voice Confirmation ID: [id number] DOCUMENT ID: [id number] FREDA FREDERICK MD at 1301 CC: [id number] DICTATION DATE: 07/15/18 1616 PACKAGING MANAGER: 07/15/18 1812 ADM IN [address] [place] [address]
[2018-07-16] MEDS ORDERED: FEXOFENADINE HC60 MG PO (15:20)
[2018-07-16] MEDS ORDERED: ELIQUIS2.5 MG PO (15:20)
[2018-07-16] MEDS ORDERED: PERPHENAZINE2 MG PO (15:21)
[2018-07-16] MEDS ORDERED: DICLOFENAC SODI50 MG PO (15:21)
[2018-07-16] MEDS ORDERED: EFFEXOR37.5 MG PO (15:21)
[2018-07-16] MEDS ORDERED: SENNA8.6 MG PO (15:21)
[2018-07-16] MEDS ORDERED: GLUCOTROL ER2.5 MG PO (15:22)
[2018-07-16] MEDS ORDERED: MEGACE40 MG PO (15:22)
[2018-07-16] MEDS ORDERED: GLUCOPHAGE500 MG PO (15:22)
[2018-07-16 19:50] VITALS: BP 105/41
--- NOTE | 2018-07-17 00:44 | NUR ---
B) Patient is alert and oriented to person and place, calm and pleasant, follows instructions, I) Administered scheduled medications as ordered, crushed meds, R) Mediation compliant, cooperative P) Continue plan of care.
--- NOTE | 2018-07-17 10:18 | NUR ---
IS ORIENTED X 3 BUT HAS SOME CONFUSION.COMPLIANT WITH STAFF AND MEDS.CAN WALK BUT IS UNSTEADY,PROPELLS SELF IN WHEELCHAIR.TO BE DISCHARGED TO [facility].WILL CONTINUE WITH PLAN OF CARE,MONITOR FOR CHANGES AND SAFETY.
--- NOTE | 2018-07-17 12:00 | NUR ---
DISCHARGED TO [facility] VIA WHEELCHAIR TO [place].HAS ALL PERSONAL ITEMS INCLUDING $96.00 RODRIGUEZ.RODRIGUEZ COUNTED WITH HER.
--- NOTE | 2018-07-17 13:03 | PN ---
PATIENT:JONNATHAN SANCHEZ MEDICAL RECORD: [id number] LOCATION:[facility] ADMISSION DATE: 06/23/18 PROGRESS NOTE DATE OF SERVICE: 07/16/2018 SUBJECTIVE: The patient's case was discussed with staff. She has no new complaint. OBJECTIVE: The patient is in good behavioral control. She has poor insight about her condition. She generally tolerates her medicines well. ASSESSMENT: No change in diagnoses. PLAN: Current medicines and therapies have been reviewed, both will be maintained. Long-term prognosis is guarded. I anticipate the patient can be transitioned out of the hospital tomorrow. TRANSINT:[id number] Voice Confirmation ID: [id number] DOCUMENT ID: [id number] FREDA FREDERICK MD at 1303 CC: [id number] DICTATION DATE: 07/16/18 1519 DEMAND MANAGER: 07/17/18 0015 ADM IN [facility] [address] [place] [address]
--- NOTE | 2018-07-18 13:49 | PN ---
PATIENT:JONNATHAN SANCHEZ MEDICAL RECORD: [id number] LOCATION:[facility] ADMISSION DATE: 06/23/18 PROGRESS NOTE DATE OF SERVICE: 07/17/2018 SUBJECTIVE: The patient's case was discussed with staff. She has no new complaint. OBJECTIVE: The patient is in good behavioral control. She has a depressed mood, but no thoughts of self-harm. She has no overt psychotic symptoms. She is tolerating her medicines well and understands her outpatient treatment plan. ASSESSMENT: No change in diagnoses. PLAN: Current medicines have been reviewed and will be maintained. Long-term prognosis is guarded. TRANSINT:[id number] Voice Confirmation ID: [id number] DOCUMENT ID: [id number] FREDA FREDERICK MD at 1349 CC: [id number] DICTATION DATE: 07/17/18 1602 CAUSTIC LIQUOR MAKER: 07/17/18 2300 DIS IN 07/17/18 [facility] [address] [place] [address]
--- NOTE | 2018-07-19 08:39 | DS ---
PATIENT:JONNATHAN SANCHEZ :52 MEDICAL RECORD: [id number] DISCHARGE SUMMARY ADMISSION DATE: 06/23/18 DISCHARGE DATE: 07/17/18 IDENTIFYING DATA: The patient is 68 years old and she is admitted to the hospital on a voluntary basis secondary to depressive symptoms. The patient presented to the hospital after being referred to us by a group Residential Living situation that she has been staying in. She has been making some suicidal statements and was endorsing a lot of depressive symptoms. She repeated those statements to me. She felt that she was not being treated very fairly at the facility, but she could not give me any examples or indicate how she was not being treated fairly. HOSPITAL COURSE: The patient was admitted to the hospital and evaluated from both medical, psychological, and social standpoint. She was found to be severely depressed and was given antidepressant medications along with some antipsychotic medicines because of the psychotic features associated with her depression. She did show improvement and was subsequently placed in a detention. DISCHARGE DIAGNOSES: AXIS I: Major depression, moderate severity, recurrent with psychotic features. AXIS II: Cluster A personality traits. AXIS III: Diabetes, coronary artery disease, hyperlipidemia, osteoarthritis, and previous stroke. AXIS IV: Moderate stressors. AXIS V: Global assessment of functioning is 40. PLAN: At the time of discharge, the patient was in good behavioral control and had no active thoughts of harming herself or others. She was tolerating her medicines well. Her long-term prognosis is guarded. TRANSINT:[id number] Voice Confirmation ID: [id number] DOCUMENT ID: [id number] FREDA FREDERICK MD at 0839 CC: [id number] DICTATION DATE: 07/18/18 1353 CATH LAB: 07/19/18 0014 DIS IN 07/17/18 [place] [address] [place] [id number]
== END 2018-07-17 12:00 | DRG 885 ==
LOC: D.ER 13:20 → D.PSYCH 18:03
PROVIDERS: Family Medicine; ADMIT Psychiatry & Neurology Psychiatry; ATTEND Psychiatry & Neurology Psychiatry
DX: F33.3 Major depressive disorder, recurrent, severe with psychotic symptoms (principal); R45.851 Suicidal ideations; N39.0 Urinary tract infection, site not specified; I25.10 Atherosclerotic heart disease of native coronary artery without angina pectoris; E11.9 Type 2 diabetes mellitus without complications; E78.5 Hyperlipidemia, unspecified; M19.90 Unspecified osteoarthritis, unspecified site; K21.9 Gastro-esophageal reflux disease without esophagitis; K59.00 Constipation, unspecified; J06.9 Acute upper respiratory infection, unspecified; I48.0 Paroxysmal atrial fibrillation; Z86.73 Personal history of transient ischemic attack (TIA), and cerebral infarction without residual deficits

== ENCOUNTER 2018-08-06 10:17 | Inpatient (IN) | payer MEDICARE ==
[~2018-08-06] VITALS: Ht 167.6 cm; Wt 52.2 kg
[2018-08-06] VITALS (13 sets, daily range): BP systolic 90–120; BP diastolic 40–85; BMI 27.0
[~2018-08-06 10:17] MED LIST: ASPIRIN81 MG PO; COZAAR50 MG; DICLOFENAC SODI50 MG PO; EFFEXOR37.5 MG PO; ELIQUIS2.5 MG PO; FEXOFENADINE HC60 MG PO; GLUCOPHAGE500 MG PO; GLUCOTROL ER2.5 MG PO; LEXAPRO5 MG PO; LIPITOR20 MG PO; MEGACE40 MG PO; NORVASC10 MG PO; PERPHENAZINE2 MG PO; PROTONIX40 MG; SENNA8.6 MG PO
[2018-08-06 11:09] LABS: ALBUMIN 3.6 g/dL (3.4-5.0); ANION GAP 38.4 mmol/L (8-16); BILIRUBIN - TOTAL 0.73 mg/dL (0.2-1.3); CALCIUM 8.5 mg/dL (8.5-10.1); CREATININE - SERUM 2.4 mg/dL (0.6-1.3); POTASSIUM - SERUM 4.8 mmol/L (3.5-5.1)
[2018-08-06 11:17] LABS: CARBON DIOXIDE 5.4 mmol/L (21.0-32.0)
[2018-08-06 11:26] LABS: HEMATOCRIT 46.1 % (36.0-48.0); HEMOGLOBIN 15.3 g/dL (12-16); MCH 29.7 pg (26.0-34.0); MCHC 33.2 g/dL (31.0-37.0); MCV 89.5 fL (80.0-100.0); MEAN PLATELET VOLUME 12.2 fL (7.4-10.4); PLATELET COUNT 308 10x3/uL (130-400); RBC 5.15 10x6/uL (4.00-5.40); WBC 20.6 10x3/uL (4.8-10.8)
[2018-08-06 11:46] LABS: LYMPHOCYTES 10 % (15-50); MONOCYTES 11 % (2-11); NEUTROPHILS 62 % (40-80); PLATELET ESTIMATE NORMAL
--- NOTE | 2018-08-06 12:48 | NUR ---
NOTIFIED BY LAB OF CRITICAL LACTIC ACID OF 9.8 AT 1219. SPOKE WITH ADMITTING MD DR. GONZALEZ TO RELAY THE ABOVE. THIS NURSE INSTRUCTED TO HAVE SERUM KETONES COLLECTED STAT AND TO NOTIFY HIM OF THE RESULTS. THIS NURSE INSTRUCTED TO NOT TAKE PT TO ASSIGNED ROOM 2234 PENDING RESULTS.
--- NOTE | 2018-08-06 12:58 | NUR ---
SPOKE WITH DR. GONZALEZ AND RELAYED THAT SERUM KETONES RESULT WAS "SMALL." PER DR. GONZALEZ, THIS NURSE INSTRUCTED TO INITIATE INSULIN DRIP AT 5UNITS/HOUR AND THAT PT WAS TO BE ADMITTED TO ICU BED, NOT 2234. ALSO, TO FOLLOW DKA PROTOCOL. DEBURRING TECHNICIAN AND TECHNICAL STAFF ENGINEER NOTIFIED OF THE ABOVE.
--- NOTE | 2018-08-06 13:51 | MORECARE ---
CASE MANAGEMENT DISCHARGE SUMMARY PATIENT: JONNATHAN SANCHEZ UNIT: [id number] ADM DATE: 08/06/18 AGE: 68 : 51 SEX: F ROOM/BED: D.2301 AUTHOR: JOCELYN COVARRUBIAS PHYSICIAN: REFERRING PHYSICIAN: WILD GONZALEZ MD DATE OF SERVICE: 08/06/18 Discharge Plan Patient Name: JONNATHAN SANCHEZ Facility: [facility]:[place] : 1950 Planned Disposition: Anticipated Discharge Date: Discharge Date: Expected LOS: Initial Reviewer: [email or web address] Initial Review Date: 08/06/2018 Generated: 08/06/18 2:51 pm Patient Name: JONNATHAN SANCHEZ Page 13452 at 1351 All edits/amendments must be made on the electronic document DICTATION DATE: 08/06/18 1350 HYDRAULIC CONTROLS TECHNICIAN: KRISTY 08/06/18 1350 RPT#: [id number] DC DATE: STATUS: ADM IN [facility] [address] [place] [address] END OF REPORT
--- NOTE | 2018-08-06 14:11 | NUR ---
2ND IV START 20 GA LEFT FOREARM. S/L
--- NOTE | 2018-08-06 14:12 | NUR ---
WHEN GIVING HAND-OFF REPORT TO CHERY TONG THIS NURSE EXPLAINED THAT PHARMACY HAD YET TO COMPLETE PREPARING ORDERED SODIUM BICARB INFUSION AND ORDERED INSULIN DRIP, THUS MEDICATIONS HAD NOT YET BEEN ADMINISTERED. THIS NURSE THEN CALLED PHARMACY AND EXPLAINED THAT PT WAS BEING TRANSPORTED TO ROOM 2301 AND THAT ONCE ORDERED MEDICATIONS WERE READY FOR ADMINISTRATION, THEY NEEDED TO BE SENT TO ICU.
--- NOTE | 2018-08-06 14:37 | NUR ---
ASSESSMENT COMPLETE PER FLOWSHEET.
--- NOTE | 2018-08-06 16:25 | NUR ---
PICC LINE PLACED CXR DONE.
--- NOTE | 2018-08-06 17:45 | NUR ---
LACTIC ACID 4.[address] GONZALEZ.
--- NOTE | 2018-08-06 18:00 | NUR ---
16 TURKISH DURAN PLACED PER SAIRA BERGMAN RN.
--- NOTE | 2018-08-06 18:35 | NUR ---
SIPPING ON MAG CITRATE.
[2018-08-07] VITALS (22 sets, daily range): BP systolic 84–117; BP diastolic 43–85; BMI 17.6
[2018-08-07 05:29] LABS: BASOPHILS 0.1 % (0-2); EOSINOPHILS 0.1 % (0-7); IMMATURE GRANULOCYTES 0.3 % (0-5); LYMPHOCYTES 9.7 % (15-50); MCH 29.2 pg (26.0-34.0); MCHC 35.2 g/dL (31.0-37.0); MEAN PLATELET VOLUME 11.4 fL (7.4-10.4); MONOCYTES 4.9 % (2-11); NEUTROPHILS 84.9 % (40-80); RDW 12.6 % (11.5-14.5); WBC 18.2 10x3/uL (4.8-10.8)
[2018-08-07 05:31] LABS: HEMOGLOBIN 11.2 g/dL (12-16); RBC 3.84 10x6/uL (4.00-5.40)
[2018-08-07 05:32] LABS: HEMATOCRIT 31.8 % (36.0-48.0); MCV 82.8 fL (80.0-100.0); PLATELET COUNT 223 10x3/uL (130-400)
[2018-08-07 05:42] LABS: CALCIUM 7.4 mg/dL (8.5-10.1)
[2018-08-07 05:43] LABS: ANION GAP 11.1 mmol/L (8-16); CARBON DIOXIDE 31.8 mmol/L (21.0-32.0); CREATININE - SERUM 1.3 mg/dL (0.6-1.3); POTASSIUM - SERUM 2.9 mmol/L (3.5-5.1)
--- NOTE | 2018-08-07 07:00 | NUR ---
SHIFT ASSESSMENT COMPLETED, PT CARE ASSUMED, MONITORS ON AND WORKING, SEE FLOW SHEET FOR FURTHER DETAILS. WILL CONTINUE TO OBSERVE.
--- NOTE | 2018-08-07 09:00 | NUR ---
PT TURNED AND REPOSITIONED FOR COMFORT, NO SIGNS/SYMPTOMS OF PAIN OR DISCOMFORT NOTED. CALL LIGHT WITHIN REACH, WILL CONTINUE TO OBSERVE.
--- NOTE | 2018-08-07 11:00 | NUR ---
NO CHANGES, MONITORS ON AND WORKING, VITALS STABLE, INSULIN DRIP STOPPED. FOLLOWING LOW DOSE SLIDING SCALE. SEE FLOW SHEET FOR FURTHER DETAILS. WILL CONTINUE TO OBSERVE.
--- NOTE | 2018-08-07 13:00 | NUR ---
PT SITTING UP IN BED, MONITORS ON AND WORKING, PT REMAINS IN AFIB, PT AWAKE, CALL LIGHT WTIHIN REACH, WILL CONTINUE TO OBSERVE.
--- NOTE | 2018-08-07 15:00 | NUR ---
NO CHANGES, SEE FLOW SHEET FOR FURTHER DETAILS. PT HAS PERIODS OF CONFUSION, MONITORS ON AND WORKING, VITALS STABLE, WILL CONTINUE TO OBSERVE.
--- NOTE | 2018-08-07 15:36 | MORECARE ---
CASE MANAGEMENT DISCHARGE SUMMARY PATIENT: JONNATHAN SANCHEZ UNIT: [id number] ADM DATE: 08/06/18 AGE: 68 : 51 SEX: F ROOM/BED: D.2301 AUTHOR: JOCELYN COVARRUBIAS PHYSICIAN: REFERRING PHYSICIAN: WILD GONZALEZ MD DATE OF SERVICE: 08/07/18 Discharge Plan Patient Name: JONNATHAN SANCHEZ Facility: [facility]:[place] : 1950 Planned Disposition: Nursing Facility DENNIS Cert Anticipated Discharge Date: Discharge Date: Expected LOS: Initial Reviewer: [email or web address] Initial Review Date: 08/06/2018 Generated: 08/07/18 4:35 pm Comments DCP- Discharge Planning Updated by [email or web address]: Christiana Hickman on 08/07/18 2:[address] Patient Name: JONNATHAN SANCHEZ Admission Status: ER Accout number: [id number] Admission Date: 08-06-2018 : 1950 Admission Diagnosis: Attending: WILD GONZALEZ Current LOS: 1 Anticipated DC Date: Planned Disposition: Nursing Facility DENNIS Cert Primary Insurance: MEDICARE A & B Discharge Planning Comments: CM met with patient she states she lives in a Residential [facility]. Patient states that she has been kicked out of the [facility]. CM called [facility] to find out patient status if in Medicare or Medicaid bed. CM attempted to call facility three times and could not ever speak to anyone. CM will continue to follow and assist as needed with discharge planning / needs. Stone Operator: Christiana Hickman DCPIA - Discharge Planning Initial Assessment Updated by [email or web address]: Christiana Hickman on 08/07/18 3:31 pm * Is the patient Alert and Oriented? Yes * How many steps to enter\exit or inside your home? * PCP Isela * Preadmission Environment [facility] * Facility Name [address] Last DP export: 08/06/18 12:51 p Patient Name: JONNATHAN SANCHEZ Page 48233 at 1536 All edits/amendments must be made on the electronic document DICTATION DATE: 08/07/181534 PLAN COORDINATOR: KRISTY 08/07/18 153 RPT#: [id number] DC DATE: STATUS: ADM IN [facility] [address] [place] [address] END OF REPORT
--- NOTE | 2018-08-07 17:00 | NUR ---
PT TURNED AND REPOSITIONED Q2H AND PRN, NO SIGNS/SYMPTOMS OF PAIN OR DISTRESS NOTED AT THIS TIME, WILL CONTINUE TO OBSERVE.
[2018-08-08] VITALS (22 sets, daily range): BP systolic 94–151; BP diastolic 62–101; Ht 167.6 cm; Wt 52.2 kg
--- NOTE | 2018-08-08 03:00 | NUR ---
REASSESSMENT MADE PT C/O BEING HOT HAS TAKEN GOWN OFF PLACED BACK ON AND TURNED ROOM UNIT DOWN A LITTLE WILL RECHECK IF BETTER BY PT LATER. UNCONTROLLED RATE STILL VARIES FROM 120'S-140'S
[2018-08-08 05:46] LABS: BASOPHILS 0.1 % (0-2); EOSINOPHILS 0 % (0-7); HEMATOCRIT 30.8 % (36.0-48.0); HEMOGLOBIN 10.7 g/dL (12-16); IMMATURE GRANULOCYTES 0.2 % (0-5); LYMPHOCYTES 12.7 % (15-50); MCH 29.2 pg (26.0-34.0); MCHC 34.7 g/dL (31.0-37.0); MCV 83.9 fL (80.0-100.0); MEAN PLATELET VOLUME 11.4 fL (7.4-10.4); MONOCYTES 4.1 % (2-11); NEUTROPHILS 82.9 % (40-80); PLATELET COUNT 196 10x3/uL (130-400); RBC 3.67 10x6/uL (4.00-5.40); RDW 12.5 % (11.5-14.5); WBC 14.9 10x3/uL (4.8-10.8)
[2018-08-08 05:51] LABS: CARBON DIOXIDE 29.5 mmol/L (21.0-32.0)
[2018-08-08 06:00] LABS: ANION GAP 10.6 mmol/L (8-16); POTASSIUM - SERUM 4.1 mmol/L (3.5-5.1)
[2018-08-08 06:04] LABS: CALCIUM 6.8 mg/dL (8.5-10.1)
--- NOTE | 2018-08-08 07:00 | NUR ---
PATIENT RESTING IN BED WITH CALL HATHAWAY IN REACH WAKES WITH EASE. HEART RATE 115 IRREGULAR IN A-FIB. OTHER VS ARE STABLE. WILL CONTINUE TO MONITOR
--- NOTE | 2018-08-08 08:59 | NUR ---
CORRECTED CALCIUM IS 9.8--NO NEED TO NOTIFY DOCTOR. PT RESTING IN BED IN STABLE CONDITION. CALL HATHAWAY IN REACH
--- NOTE | 2018-08-08 09:36 | NUR ---
CHANGED PATIENTS LINENS. APPEARED TO HAVE URINE ON PAD EVEN THOUGH CATHETER IS SECURED IN PLACE. ALSO CHANGED GOWN
--- NOTE | 2018-08-08 09:57 | NUR ---
Nutrition Follow Up: NPO diet continues Weight 115lb today Reviewed labs Pt started on Procalamine @ 50mL/hour REC: May want to consider TPN to better meet pt nutritional needs RD following
--- NOTE | 2018-08-08 11:00 | NUR ---
patient resting in bed. A-FIB UNCONTROLLED. HR FLUCTUATING BETWEEN 115 AND 140. BP STABLE. A-FEBRILE. DR. GONZALEZ CAME TO SEE.
--- NOTE | 2018-08-08 13:22 | NUR ---
CARDIOLOGY CAME TO SEE PATIENT. ORDERS FOR DIGOXIN AND ELIQUIS AND ECHO
--- NOTE | 2018-08-08 14:22 | MORECARE ---
CASE MANAGEMENT DISCHARGE SUMMARY PATIENT: JONNATHAN SANCHEZ UNIT: [id number] ADM DATE: 08/06/18 AGE: 68 : 52 SEX: F ROOM/BED: D.2301 AUTHOR: SATISH,DOC PHYSICIAN: REFERRING PHYSICIAN: WILD GONZALEZ MD DATE OF SERVICE: 08/08/18 Discharge Plan Patient Name: JONNATHAN SANCHEZ Facility: [facility]:[place] : 1950 Planned Disposition: Nursing Facility [facility] Cert Anticipated Discharge Date: Discharge Date: Expected LOS: Initial Reviewer: [email or web address] Initial Review Date: 08/06/2018 Generated: 08/08/18 3:22 pm Comments DCP- Discharge Planning Updated by [email or web address]: Christiana Hickman on 08/08/18 1:[address] CM called [facility] and spoke with staff they stated that the patient was in a Medicare bed at the facility and plan on her returning to the facility upon discharge. CM will continue to follow and assist as needed with discharge planning / needs. DCP- Discharge Planning Updated by [email or web address]: Christiana Hickman on 08/07/18 2:[address] Patient Name: JONNATHAN SANCHEZ Admission Status: ER Accout number: [id number] Admission Date: 08-06-2018 : 1950 Admission Diagnosis: Attending: WILD GONZALEZ Current LOS: 1 Anticipated DC Date: Planned Disposition: Nursing Facility [facility] Cert Primary Insurance: MEDICARE A & B Discharge Planning Comments: CM met with patient she states she lives in a Jail ([facility]) [phone]. Patient states that she has been kicked out of the DC. CM called DC to find out patient status if in Medicare or Medicaid bed. CM attempted to call facility three times and could not ever speak to anyone. CM will continue to follow and assist as needed with discharge planning / needs. Medical Writer: Christiana Hickman DCPIA - Discharge Planning Initial Assessment Updated by [email or web address]: Christiana Hickman on 08/07/18 3:31 pm * Is the patient Alert and Oriented? Yes * How many steps to enter\exit or inside your home? * PCP Isela * Preadmission Environment [facility] Facility * Facility Name [facility] [phone] Last DP export: 08/07/18 2:35 p Patient Name: JONNATHAN SANCHEZ Page [id number] at 1422 All edits/amendments must be made on the electronic document DICTATION DATE: 08/08/181421 TEXTILE BAG SEWER: KRISTY 08/08/181421 RPT#: [id number] DC DATE: STATUS: ADM IN [facility] [address] [place] [address] END OF REPORT
--- NOTE | 2018-08-08 15:00 | NUR ---
HR STILL TACHYCARDIC AROUND 130. OTHER VS STABLE. KELLI CARDIO GLASS UNLOADING EQUIPMENT TENDER, INSTRUCTED TO NOT CALL FOR OTHER ORDERS ABOUT A-FIB RVR UNTIL AFTER 3RD DOSE OF DIGOXIN IS GIVEN AND STILL NO RESPONSE.
--- NOTE | 2018-08-08 15:03 | EC ---
PATIENT:JONNATHAN SANCHEZ DATE OF SERVICE: 08/06/18 SEX: F MEDICAL RECORD: [id number] DATE OF : [birth year] LOCATION:[facility] D230 AGE OF PATIENT: 68 ADMISSION DATE: 08/06/18 REFERRING PHYSICIAN: INTERPRETING PHYSICIAN: HARDIK ROBLES MD ECHOCARDIOGRAM REPORT ECHO CHARGES 4 ECHO COMPLETE Date: 08/08/18 CLINICAL DIAGNOSIS: AFIB WITH RVR CHRONIC AFIB, HX OF MVR ECHOCARDIOGRAPHIC MEASUREMENTS (adult normal given) AC root (d.<3.7cm) 3.1 cm LV Septum d (<1.2 cm> 1.0 cm Valve Excursion 1.7 cm LV Septum (systole) 1.1 cm Left Atria (s.<4.0cm> 5.0 cm LVPW d(<1.2cm) 1.4 cm RV (d.<2.3cm) 5.0 cm LVPW (sytole) 1.5 cm LV diastole(<5.6CM) 5.2 cm MV E-F(>70mm/sec) cm LV systole 4.8 cm LVOT Diameter 2.1 cm MV exc.(>10mm) 1.7 cm Est.ejection fraction (50-75%) % DOPPLER: LVIT cm/sec A 65.0 cm/sec E 84.0 cm/sec LA cm/sec RVSP 40 mmHg LVOT 68 cm/sec AOP1/2T m/s Asc. Ao 87 cm/sec RVOT 44 cm/sec RA cm/sec PA 62 cm/sec AV Gradient Peak 3.06 mmHg AV Mean 1.52 mmHg AV Area 3.0 cm MV Gradient Peak 6.29 mmHg MV Mean 1.86 mmHg MV Area cm COMMENTS: Double Cut Off Saw Operator: Hermes WALKER Drum Worker: Renzo Robles TAPE# PACS Pericardial Effusion N DATE OF SERVICE: 08/08/2018 ECHOCARDIOGRAM DATE OF SERVICE: 08/08/2018 FINDINGS: 1. Left ventricular chamber size is dilated. Left ventricular systolic function is markedly reduced. Overall ejection fraction 15% to 20%. 2. Left atrium, right atrium and right ventricular chamber sizes are dilated ECHOCARDIOGRAM REPORT [id number] JONNATHAN SANCHEZ giving 4-chamber dilatation. 3. 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 There is heavy calcification on both leaflets; however, there is minimal restriction. The remaining valvular structures have normal structure and motion. 4. Doppler interrogation reveals moderate mitral regurgitation, moderate tricuspid regurgitation, no other valvular insufficiency or stenosis. Pulmonary systolic pressure is estimated at 40 mmHg. 5. No evidence of pericardial effusion or left ventricular thrombus. 6. The patient is in atrial fibrillation during the study. TRANSINT:[id number] Voice Confirmation ID: [id number] DOCUMENT ID: [id number] HARDIK ROBLES MD at 1503 CC: [id number] DICTATION DATE: 08/08/18 1350 INSECTICIDE SPRAYER: 08/08/18 1427 ADM IN [facility] [address] [place] [id number]
--- NOTE | 2018-08-08 18:48 | NUR ---
HR NOW IN 150'S A-FIB RVR. PAGED DR. BAILEY
--- NOTE | 2018-08-08 19:00 | NUR ---
REPORT RECEIVED AND INITIAL ASSESSMENT COMPLETE. DARRELL GOTTLIEB STATES HE HAD PAGED COURTROOM DEPUTY OR CALENDAR CLERK ABOUT HEART RATE NO ANSWER YET. HE DID SAY THAT WHEN FABRICE THE PHOTOGRAMMETRIC ENGINEER FOR COURTROOM DEPUTY OR CALENDAR CLERK CAME BY SHE ORDERED DIG X2 AND TO WAIT UNTIL AFTER THE LAST OF DIG IN AND IF STILL NEED SOMETHING FOR HEART RATE TO CALL AFTER LAST OF DIG GIVEN. PT ALERT AND VERBAL AND FOLLOWS COMMANDS SHE IS ORIENTED. BUS AND TROLLEY DISPATCHER READING UNCONTROLLED AFIB RATE FROM 120-150'S. ALARMS ON AND AUDIBLE. RESP EVEN AND NONLABORED BREATH SOUNDS REL CLEAR. ENCOURAGED PT TO BREATHE DEEP OFTEN AND COUGH. ON ROOM AIR WITH O2 SAT READING 99%. SKIN WARM AND DRY. PPP. BED IN LOW POSITION WITH CALL LIGHT IN REACH AND SR UP TIMES 3 FOR BED MOBILITY AND SAFETY. LEFT ARM PICC WITH NEXTERONE GTT FOR A FIB SEE FLOWSHEET
--- NOTE | 2018-08-08 19:07 | NUR ---
OBTAINED ORDER FROM DR. GONZALEZ FOR DILTIAZEM DRIP AT 5ML/HR FOR HR OVER 150
--- NOTE | 2018-08-08 19:15 | NUR ---
DARRELL HAD SPOKE TO LISA ABOUT PTS HEART RATE HE ORDERED CARDIZEM GTT.
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
--- NOTE | 2018-08-08 22:00 | NUR ---
PT RESTING QUIETLY WITH EYES CLOSED OPENS EYES AND DENIES PAIN AT THIS ITME
--- NOTE | 2018-08-08 23:00 | NUR ---
REASSESSMENT MADE NO CHANGES PT UNCONTROLLED A FIB DOES GET TO 150-160;S BUT COMES BACK TO 120-130'S. CARDIZEM GTT CONTINUES.
[2018-08-09] VITALS (25 sets, daily range): BP systolic 103–159; BP diastolic 53–703
--- NOTE | 2018-08-09 03:00 | NUR ---
REASSESSMENT MADE PT DENIES PAIN. RATE CONTROLLED STILL ON CARDIZEM AMIODARONE AND RECEIVING LOPRESSOR.
--- NOTE | 2018-08-09 07:30 | NUR ---
AWAKES REORIENTATED TO TIME AND PLACE. STATES SHE IS NAUSEA. PATIENT HAS TAKEN HER GOWN OFF AND PULL ALL HER ELECTROS OFF. LEFT UPPER ARM PICC DRESSING IN PLACE INFUSING WITH CARDIZEM AT 5 MG HOUR, CORDARONE AT 0.5MG/MIN. NS AT 75 ML HOUR, PROCALAMINE AT 50 ML HOUR. ASSESSMENT DOCUMENTED. REPOSITIONED ON RIGHT SIDE. DURAN CATH PATENT DRAINING CLEAR YELLOW URINE. MONITOR ATRIAL FIB RATE ABOVE 140.BLOOD PRESSURE STABLE. HEAD OF BED ELEVATED 30 DEGREES.
[2018-08-09 08:58] LABS: BASOPHILS 0.1 % (0-2); EOSINOPHILS 0 % (0-7); HEMATOCRIT 36.9 % (36.0-48.0); HEMOGLOBIN 12.8 g/dL (12-16); IMMATURE GRANULOCYTES 0.5 % (0-5); LYMPHOCYTES 7.1 % (15-50); MCH 29.5 pg (26.0-34.0); MCHC 34.7 g/dL (31.0-37.0); MEAN PLATELET VOLUME 11.5 fL (7.4-10.4); MONOCYTES 3.8 % (2-11); NEUTROPHILS 88.5 % (40-80); PLATELET COUNT 220 10x3/uL (130-400); RBC 4.34 10x6/uL (4.00-5.40); RDW 12.4 % (11.5-14.5)
--- NOTE | 2018-08-09 09:00 | NUR ---
REPOSITIONED. MEDS TAKEN IN APPLE SAUCE, STILL STATES SHE IS NAUSEA. [place] DRINK PROVIDED. RESTING WELL WITHOUT DISTRESS. IV LEFT FOREARM DC'D.
[2018-08-09 09:02] LABS: WBC 19.6 10x3/uL (4.8-10.8)
[2018-08-09 09:11] LABS: CALC OSMOLALITY 277 mosm/kg (275-300); CARBON DIOXIDE 22.2 mmol/L (21.0-32.0); CHLORIDE - SERUM 100 mmol/L (98-107); CREATININE - SERUM 0.7 mg/dL (0.6-1.3); GLUCOSE 208 mg/dL (74-106); POTASSIUM - SERUM 3.7 mmol/L (3.5-5.1); SODIUM 136 mmol/L (136-145); UREA NITROGEN 13 mg/dL (7-18); eGFR NON AFRICAN AMERICAN 88 mL/min (90-120)
[2018-08-09 09:12] LABS: CALCIUM 6.7 mg/dL (8.5-10.1)
--- NOTE | 2018-08-09 11:00 | NUR ---
REPOSITIONED. GOOD URINE OUTPUT. CARDIZEM AT 10 MG HOUR MONITOR STILL ATRIAL FIB RATE 140. RESTING WELL. STILL COMPLIANTS OF NAUSEA AND GAGING WHEN REPOSITIONED.
--- NOTE | 2018-08-09 12:30 | NUR ---
FEED A FEW BITES OF MASH POTATOES AND GRAVY AND MASHED CARROTS. WANTED TO FEED HERSELF. NO MORE EATEN
--- NOTE | 2018-08-09 13:00 | NUR ---
REPOSITIONED. NO DISTRESS. DR. GONZALEZ HERE LOPRESSOR ORDER IV FOR HEART RATE GREATER THAN 140 ATRIAL FIB. MEDS GIVEN SLOWLY
--- NOTE | 2018-08-09 14:00 | NUR ---
HEART IN 100'S STILL ATRAIL FIB. BLOOD PRESSURE STABLE. PATEINT RESTING WELL NO DISTRESS
[2018-08-09 14:08] LABS: APPEARANCE CLEAR (CLEAR); BILIRUBIN NEGATIVE (NEGATIVE); COLOR YELLOW (YELLOW); GLUCOSE 1000 mg/dL (NEGATIVE); KETONE MODERATE mg/dL (NEGATIVE); NITRITE NEGATIVE (NEGATIVE); PROTEIN NEGATIVE (NEGATIVE); SPECIFIC GRAVITY 1.015 (1.005-1.020); UROBILINOGEN NORMAL (NORMAL)
--- NOTE | 2018-08-09 15:00 | NUR ---
REPOSITIONED. HEART RATE BACK UP TO 140'S. CARDIZEM CONTINUES AT 10 MG HOUR, CORDARONE AT 0.5MG/MIN. NO DISTRESS BLOOD PRESSURE STABLE
--- NOTE | 2018-08-09 17:00 | NUR ---
COMPLETE BED BATH GIVEN WITH LINEN CHANGE DURAN CATH CARE DONE. REPOSITIONED ON SIDE. REFUSED CHICKEN AND DUMBLINGS. MASHED POTATOES AND GRAVY ORDERED PER PATIENT REQUEST. TAKING SIPS OF [place], STILL SOME NAUSEA.
--- NOTE | 2018-08-09 19:00 | NUR ---
REPORT RECEIVED INITIAL ASSESSMENT COMPLETE PT RESTING QUIETLY WITH EYES CLOSED OPENS EYES TO VERBAL STIMULI. IRRITATED WITH NURSE WAKING HER UP. NOT COOPERATING BUT ABLE TO FOLLOW COMMANDS. RESP EVEN AND NONLABORED ON ROOM AIR O2 SAT 98%, CHEST CLEAR. CM NOTED ALARMS ON AND AUDIBLE CONTROLLED AFIB 81. LEFT UPPER ARM PICC WITH AMIODARONE,CARDIZEM FOR AFIB,PROCALAMINE,SEE IV FLOW ABD SOFT NONTENDER PT DOES SAY SHE HAS BEEN PASSING GAS. DURAN DRAINING YELLOW URINE. SKIN W/D PPP. BED LOW POSIITON CALL LIGHT IN REACH. PT DENIES PAIN AT THIS TIME.
--- NOTE | 2018-08-09 19:07 | NUR ---
FEW BITES OF MASHED POTATOES
--- NOTE | 2018-08-09 23:00 | NUR ---
REASSESSMENT MADE NO CHANGES STILL ON AMIODARONE, CARDIZEM GTT BUT RATE STAYING CONTROLLED UNDER 100 AFTER LOPRESSOR WAS INITIATED. REPOSITIONED FOR COMFORT
[2018-08-10] VITALS (25 sets, daily range): BP systolic 92–133; BP diastolic 55–89
--- NOTE | 2018-08-10 03:00 | NUR ---
REASSESSMENT MADE PT DENIES PAIN REPOSITIONED FOR COMFORT. LAB HERE. PARTIAL BATH LINEN CHANGE AND LABS DRAWN FROM LEFT PICC.
[2018-08-10 04:53] LABS: BASOPHILS 0.1 % (0-2); EOSINOPHILS 0.5 % (0-7); HEMOGLOBIN 11.1 g/dL (12-16); IMMATURE GRANULOCYTES 0.5 % (0-5); LYMPHOCYTES 16.3 % (15-50); MCH 29.5 pg (26.0-34.0); MCHC 34.7 g/dL (31.0-37.0); MCV 85.1 fL (80.0-100.0); MEAN PLATELET VOLUME 11.5 fL (7.4-10.4); MONOCYTES 8.9 % (2-11); NEUTROPHILS 73.7 % (40-80); PLATELET COUNT 216 10x3/uL (130-400); RBC 3.76 10x6/uL (4.00-5.40); RDW 12.5 % (11.5-14.5)
[2018-08-10 04:55] LABS: WBC 13.1 10x3/uL (4.8-10.8)
[2018-08-10 05:09] LABS: CARBON DIOXIDE 25.8 mmol/L (21.0-32.0); CHLORIDE - SERUM 102 mmol/L (98-107); CREATININE - SERUM 0.6 mg/dL (0.6-1.3); SODIUM 137 mmol/L (136-145); UREA NITROGEN 14 mg/dL (7-18); eGFR NON AFRICAN AMERICAN > 90 mL/min (90-120)
[2018-08-10 05:16] LABS: CALC OSMOLALITY 274 mosm/kg (275-300); GLUCOSE 92 mg/dL (74-106)
[2018-08-10 05:17] LABS: CALCIUM 6.7 mg/dL (8.5-10.1)
--- NOTE | 2018-08-10 06:30 | NUR ---
CRITICAL POTASSIUM GIVEN THE POWDER DISSOLVED IN WATER PT HAVING DIFFICULT TIME DUE TO TASTE.
--- NOTE | 2018-08-10 07:30 | NUR ---
AWAKES AND ALERT. SKIN WARM AND DRY. STATES WE ARE GIVING HER BODY AND REBOOT, SHE WILL BE LIKE THE BABOON AND CARRYING IT OVER HER SHOULDER. ENCOURAGEMENT GIVEN. LEFT UPPER ARM PICC DRESSING DRY AND INTACT INFUSING WITH CORDARONE AT 0.5 MG/MIN, CARDIZEM 5 MG HOUR. NS AT 75 ML HOUR, PROCALAMINE AT 50 ML HOUR. EXPLAINED SHE IS HERE TO GET HER HEART REGULATED. DURAN CATH PATENT DRAINING YELLOW URINE. HEAD OF BED ELEVATED 30 DEGREES. MONITOR ATRAIL FIB RATE 132 TO 103.
--- NOTE | 2018-08-10 08:34 | NUR ---
BREAKFAST TRAY SET UP FOR PATIENT. FEEDING SELF DENIES NAUSEA STATES SHE IS HUNGRY
--- NOTE | 2018-08-10 10:02 | NUR ---
DR. BAILEY CALL ABOUT CONVERTING TO PO MEDS FOR CONTROL OF ATRIAL FIB.
[2018-08-10 10:36] LABS: T4 THYROXIN - FREE 1.8 ng/dL (0.76-1.46); THYROID STIMULATING HORMONE 1.83 uIU/mL (0.36-3.74)
--- NOTE | 2018-08-10 11:00 | NUR ---
CORDARON GTT TURNED OFF. NS TO KVO FOR IVPB. PATIENT REPOSITIONED. TAKING PO FLUIDS WELL. DURAN CATH PATENT. GOOD COUGH.
--- NOTE | 2018-08-10 12:00 | NUR ---
LUNCH TRAY SERVED. ATE FEW BITES. POOR APPETITE. RESTING WELL. PATIENT STATES SHE IS PREGNANY A MAN AT [facility] HAS SEX WITH YOU EVER IF YOU DON'T WANT HIM TOO. SHE ASKING FOR THE PEOPLE THAT BROUGHT HER HERE. RETURNED TO SLEEP
--- NOTE | 2018-08-10 13:00 | NUR ---
REPOSITIONED. NO DISTRESS. PATIENT THINKS IT IS FLORIDALMA, STATES THERE ARE NOT MANY HERE PEOPLE HERE ON [place] DAY. REORIENTATED TO PLACE TIME AND SITUATION
--- NOTE | 2018-08-10 15:00 | NUR ---
ASSESSEMENT DOCUMENTED. NO CHANGES. REPOSITIONED. MONITOR ATRIAL FIB WITH CONTROLLED RATE
--- NOTE | 2018-08-10 16:30 | NUR ---
DURAN CATH CARE DONE. CLEAN PAD APPLIED REPOSITIONED. TOTAL ASSISTANCES TO TURN AND REPOSITION.
--- NOTE | 2018-08-10 17:00 | NUR ---
DINNER TRAY SERVED. STATES NOT SURE IF SHE IS GOING TO EAT.
--- NOTE | 2018-08-10 17:46 | NUR ---
COUPLE BITES OF SUPER TRAY. SLEEPING MOST OF DAY. NO DISTRESS. MONITOR ATRAIL FIB WITH RATE IN 80'S. CARDIZEM INFUSING AT 5 MG HOUR. PROCALAMINE AT 50 ML HOUR. NS AT KVO FOR IVPB.
--- NOTE | 2018-08-10 19:00 | NUR ---
REPORT RECEIVED. RECEIVED PT SITTING UP IN BED. AWAKE AND ALERT. ORIENTED TO PERSON ONLY. REORIENTED TO DATE/TIME PLACE AND SITUATION WITH NO RETENTION. SPEECH CLEAR. VSS. MONITOR CONNECTED TO PT WITH ALARMS SET. SHIFT ASSESSMENT COMPLETED WITH NO DISTRESS OBSERVED. CALL LIGHT IN REACH. SR UP X 2
--- NOTE | 2018-08-10 21:00 | NUR ---
RESTING WITH EYES CLOSED. EASILY ROUSED AND ALERT. PO MEDS TAKEN WIITHOUT DIFFICULTY. VSS. NO DISTRESS OBSERVED.
--- NOTE | 2018-08-10 23:00 | NUR ---
RESTING WITH EYES CLOSED. EASILY ROUSED AND ALERT. REASSESSMENT COMPLETED WITH NO CHANGES OR DISTRESS OBSERVED. VSS
[2018-08-11] VITALS (23 sets, daily range): BP systolic 101–137; BP diastolic 44–90
--- NOTE | 2018-08-11 01:00 | NUR ---
RESTING WITH EYES CLOSED. VSS. NO DISTRESS OBSERVED.
--- NOTE | 2018-08-11 03:00 | NUR ---
RESTING WITH EYES CLOSED, EASILY ROUSED AND ALERT. REASSESSMENT COMPLETED WITH NO CHANGES, OR DISTRESS OBSERVED. VSS.
[2018-08-11 05:26] LABS: CALC OSMOLALITY 276 mosm/kg (275-300); CARBON DIOXIDE 23.9 mmol/L (21.0-32.0); CHLORIDE - SERUM 103 mmol/L (98-107); CREATININE - SERUM 0.5 mg/dL (0.6-1.3); GLUCOSE 166 mg/dL (74-106); POTASSIUM - SERUM 3.7 mmol/L (3.5-5.1); SODIUM 136 mmol/L (136-145); UREA NITROGEN 14 mg/dL (7-18); eGFR NON AFRICAN AMERICAN > 90 mL/min (90-120)
[2018-08-11 05:37] LABS: BASOPHILS 0.2 % (0-2); EOSINOPHILS 1.8 % (0-7); HEMATOCRIT 35.8 % (36.0-48.0); HEMOGLOBIN 12.3 g/dL (12-16); LYMPHOCYTES 26.4 % (15-50); MCH 28.9 pg (26.0-34.0); MCHC 34.4 g/dL (31.0-37.0); MCV 84.2 fL (80.0-100.0); MEAN PLATELET VOLUME 11.4 fL (7.4-10.4); MONOCYTES 11.1 % (2-11); NEUTROPHILS 59.5 % (40-80); PLATELET COUNT 236 10x3/uL (130-400); RBC 4.25 10x6/uL (4.00-5.40); RDW 12.5 % (11.5-14.5); WBC 10.6 10x3/uL (4.8-10.8)
--- NOTE | 2018-08-11 09:29 | NUR ---
PT NOT COOPERATING. WILL NOT PARTICIPATE WITH TAKING PO MEDS OR BREAKFAST.
--- NOTE | 2018-08-11 10:02 | NUR ---
Nutrition follow-up: Diet: regular mechanical soft with thin liquids PO intake poor; pt has been refusing some meals per nursing. Pancreatitis improving ProcalAmine PPN infusing @ 50 ml/hr Wt: 115# Pt is currently not meeting estimated nutritional needs. Pt may benefit from an appetite stimulant. RDN following.
--- NOTE | 2018-08-11 10:30 | NUR ---
REPORT RECEIVED FROM CHERY CAREY. PT RESPONDING VERBALLY TO ME. MEDICATIONS GIVEN TO PT CRUSHED IN SHERBET. ENCOURAGED TO TRY TO EAT AT BREAKFAST TRAY. WILL CONTINUE TO MONITOR.
--- NOTE | 2018-08-11 12:51 | NUR ---
PT REFUSED TO EAT HER LUNCH. ATTEMPTED TO ASSIST HER WITH TASK. REFUSED. MERREM HUNG. CARDIZEM STILL INFUSING AT 5MG/HR. VSS. WILL CONTINUE TO MONITOR.
--- NOTE | 2018-08-11 15:09 | NUR ---
PT REPOSITIONED. VSS. IVS AND DRIPS STILL INFUSING PER FLOWSHEET. WILL CONTINUE TO MONITOR.
--- NOTE | 2018-08-11 17:15 | NUR ---
ATTEMPTED TO ASSIST PT TO EAT DINNER. PT ATE A FEW BITES OF RICE AND A FEW BITES OF CHEESECAKE. PT REPOSITIONED IN BED. VSS. WILL CONTINUE TO MONITOR.
--- NOTE | 2018-08-11 19:00 | NUR ---
REPORT RECEIVED. RECEIVED PT RESTING IN BED WITH EYES CLOSED. EASILY ROUSED AND ALERT. ORIENTED TO SELF ONLY. REORIENTATION TO TIME/DATE/PLACE AND SITUATION WITH NO RETENTION. MONITORS CONNECTED TO PT WITH ALARMS SET. VSS. SHIFT ASSESSMENT COMPLETED WITH NO DISTRESS OBSERVED. CALL LIGHT IN REACH
--- NOTE | 2018-08-11 21:10 | NUR ---
RESTING WITH EYES CLOSED, EASILY ROUSED AND ALERT. PO MEDS TAKEN WITHOUT DIFF. VSS. NO DISTRESS OBSERVED.
--- NOTE | 2018-08-11 22:04 | NUR ---
IN PATIENTS ROOM. PT RESTING WITH EYES CLOSED. ROUSES EASILY TO LIGHT TOUCH. ALERT. SPEECH CLEAR. VSS. BP 144/87 HR 82 RESP 22 O2SAT 96% ON RA. NO DISTRESS OBSERVED.
--- NOTE | 2018-08-11 22:36 | NUR ---
ECG MONITOR ALARMING PT IN VTACH , ENTERED ROOM PT FOUND UNRESPONSIVE/ APNEIC. NO RESUSCITATIVE EFFORTS PERFORMED PER DNR ORDER.
--- NOTE | 2018-08-11 22:58 | NUR ---
SPOKE WITH DR. LOPES. UPDATED ON PATIENT CONDITION.
--- NOTE | 2018-08-11 23:10 | NUR ---
ATTEMPTED TO NOTIFY NEXT OF [facility] EMERGENCY CONTACT WITH NO ANSWER. MESSAGE LEFT TO RETURN CALL. ALL AVAILABEL NUMBERS TRIED.
--- NOTE | 2018-08-11 23:24 | NUR ---
SPOKE WITH ROHINI OSUNA NURSING STAFF AT [facility] REQUESTING ANY FURTHER POSSIBLE CONTACT INFORMATION. HE CHECKED PATIENTS CHART AND FOUND NONE.
--- NOTE | 2018-08-12 00:35 | NUR ---
SPOKE WITH SUPERVISOR CARTOGRAPHY. INFORMED OF INABILITY TO MAKE FAMILY NOTIFICATION
--- NOTE | 2018-08-12 01:50 | NUR ---
TIME OF PRONOUNCE AT [address] COOPER
--- NOTE | 2018-08-12 02:13 | NUR ---
[employer] SPECIALIST [facility]NTH[facility]ARDONA CONTACTED AND WILL TRANSPORT PT.
--- NOTE | 2018-08-12 02:17 | NUR ---
POST MORTEM CARE PERFORMED.
--- NOTE | 2018-08-12 02:49 | NUR ---
SKOOG OPERATOR HERE. TRANSPORTED PT OUT OF FACILITY
--- NOTE | 2018-08-12 19:35 | MORECARE ---
CASE MANAGEMENT DISCHARGE SUMMARY PATIENT: JONNATHAN SANCHEZ UNIT: [id number] ADM DATE: 08/06/18 AGE: 68 : 52 SEX: F ROOM/BED: D.2301 AUTHOR: SATISH,DOC PHYSICIAN: REFERRING PHYSICIAN: WILD GONZALEZ MD DATE OF SERVICE: 08/12/18 Discharge Plan Patient Name: JONNATHAN SANCHEZ Facility: [facility]:[place] : 1950 Planned Disposition: Nursing Facility [facility] Cert Anticipated Discharge Date: Discharge Date: 08/12/2018 Expected LOS: Initial Reviewer: [email or web address] Initial Review Date: 08/06/2018 Generated: 08/12/18 8:35 pm Comments DCP- Discharge Planning Updated by [email or web address]: Christiana Hicmkan on 08/08/18 1:[address] CM called [facility] and spoke with staff they stated that the patient was in a Medicare bed at the facility and plan on her returning to the facility upon discharge. CM will continue to follow and assist as needed with discharge planning / needs. DCP- Discharge Planning Updated by [email or web address]: Christiana Hickman on 08/07/18 2:[address] Patient Name: JONNATHAN SANCHEZ Admission Status: ER Accout number: [id number] Admission Date: 08-06-2018 : 1950 Admission Diagnosis: Attending: WILD GONZALEZ Current LOS: 1 Anticipated DC Date: Planned Disposition: Nursing Facility [facility] Cert Primary Insurance: MEDICARE A & B Discharge Planning Comments: CM met with patient she states she lives in a Intermediate ([facility]) [phone]. Patient states that she has been kicked out of the [place]. CM called [place] to find out patient status if in Medicare or Medicaid bed. CM attempted to call facility three times and could not ever speak to anyone. CM will continue to follow and assist as needed with discharge planning / needs. Business Administration Program Chair: Christiana Hickman DCPIA - Discharge Planning Initial Assessment Updated by [email or web address]: Christiana Hickman on 08/07/18 3:31 pm * Is the patient Alert and Oriented? Yes * How many steps to enter\exit or inside your home? * PCP Isela * Preadmission Environment Senior Living Facility * Facility Name [facility] [phone] Last DP export: 08/08/18 1:22 p Patient Name: JONNATHAN SANCHEZ Page [id number] at 1935 All edits/amendments must be made on the electronic document DICTATION DATE: 08/12/181933 HAND MOLDER AND CASTER: KRISTY 08/12/181933 RPT#: [id number] DC DATE:08/12/18 STATUS: DIS IN [facility] [address] [place] [address] END OF REPORT
== END 2018-08-12 01:50 | DRG 637 ==
LOC: D.ER 10:17 → D.EDHOLD 11:49 → D.ICU 11:49 → D.MS 12:49 → D.EDHOLD 13:08 → D.ICU 13:39
PROVIDERS: Emergency Medicine; ADMIT Internal Medicine Nephrology; ATTEND Internal Medicine Nephrology
PROC: 05HY33Z Insertion of Infusion Device into Upper Vein, Percutaneous Approach (ICD-10-PCS; principal; 2018-08-06)
DX: E11.10 Type 2 diabetes mellitus with ketoacidosis without coma (principal); K85.90 Acute pancreatitis without necrosis or infection, unspecified; E43 Unspecified severe protein-calorie malnutrition; R53.2 Functional quadriplegia; J18.9 Pneumonia, unspecified organism; E87.2 Acidosis; Z68.1 Body mass index [BMI] 19.9 or less, adult; N17.9 Acute kidney failure, unspecified; R71.0 Precipitous drop in hematocrit; I48.91 Unspecified atrial fibrillation; E86.9 Volume depletion, unspecified; F03.90 Unspecified dementia, unspecified severity, without behavioral disturbance, psychotic disturbance, mood disturbance, and anxiety; K59.00 Constipation, unspecified; Z66 Do not resuscitate; E83.42 Hypomagnesemia; E78.5 Hyperlipidemia, unspecified; I10 Essential (primary) hypertension; I25.10 Atherosclerotic heart disease of native coronary artery without angina pectoris